=== PATIENT | female | born 1935 | race Caucasian/White ===

== ENCOUNTER 2016-07-04 13:32 | Outpatient (CLI) | payer MEDICARE | END 2016-07-04 13:33 | disposition home or self-care (01) | DX: D50.9 Iron deficiency anemia, unspecified (principal) ==

== ENCOUNTER 2016-07-22 12:28 | Emergency (ER) | payer MEDICARE | END 2016-07-22 14:26 | disposition home or self-care (01) | DX: S63.92XA Sprain of unspecified part of left wrist and hand, initial encounter (principal); S60.222A Contusion of left hand, initial encounter; W18.2XXA Fall in (into) shower or empty bathtub, initial encounter; Y93.E1 Activity, personal bathing and showering; Y92.012 Bathroom of single-family (private) house as the place of occurrence of the external cause; J45.909 Unspecified asthma, uncomplicated; K21.9 Gastro-esophageal reflux disease without esophagitis; M19.90 Unspecified osteoarthritis, unspecified site ==

== ENCOUNTER 2017-01-16 10:40 | Outpatient (CLI) | payer MEDICARE ==
[2017-01-16 19:03] LABS: BASOPHILS # (AUTO) 0.1 10^3/uL (0.0-0.1); BASOPHILS % (AUTO) 0.8 %; EOSINOPHILS # (AUTO) 0.6 10^3/uL (0.0-0.7); EOSINOPHILS % (AUTO) 6.2 %; HCT - HEMATOCRIT 37.3 % (37.0-47.0); HGB - HEMOGLOBIN 12.5 g/dL (12.0-16.0); LYMPHOCYTES # (AUTO) 1.5 10^3/uL (1.5-3.5); LYMPHOCYTES % (AUTO) 15.4 %; MEAN CORPUSCULAR HGB CONC 33.4 g/dL (32.0-36.0); MEAN CORPUSCULAR VOLUME 92.8 fL (81.0-99.0); MONOCYTES # (AUTO) 0.9 10^3/uL (0.0-1.0); MONOCYTES % (AUTO) 9.3 %; NEUTROPHILS # (AUTO) 6.6 10^3/uL (1.5-6.6); NEUTROPHILS % (AUTO) 68.3 %; NUCLEATED RED BLOOD CELLS AUTO 0.1 /100WBC; RED BLOOD COUNT 4.02 10^6/uL (4.20-5.40); RED CELL DISTRIBUTION WIDTH 14.3 % (12.0-15.0); UNCORRECTED WHITE BLOOD COUNT 9.6 x10^3/uL; WHITE BLOOD COUNT 9.6 x10^3/uL (4.8-10.8)
[2017-01-16 19:32] LABS: ALBUMIN/GLOBULIN RATIO 1.2 (1.0-2.2); BILIRUBIN,TOTAL 0.5 mg/dL (0.2-1.0); CALCIUM 8.7 mg/dL (8.5-10.3); CREATININE 0.8 mg/dL (0.4-1.0); POTASSIUM 4.2 mmol/L (3.5-5.0); TOTAL PROTEIN 6.7 g/dL (6.7-8.2)
== END 2017-01-16 10:41 | disposition home or self-care (01) ==
LOC: LAB.N 10:40
PROVIDERS: ATTEND Internal Medicine
DX: M19.90 Unspecified osteoarthritis, unspecified site (principal); E03.9 Hypothyroidism, unspecified; J45.909 Unspecified asthma, uncomplicated
CPT/HCPCS: 36415; 80053; 84443; 85025

== ENCOUNTER 2017-07-20 10:56 | Outpatient (CLI) | payer MEDICARE ==
[2017-07-20 19:27] LABS: BILIRUBIN,URINE NEGATIVE (NEGATIVE); GLUCOSE, URINE (UA) NEGATIVE (NEGATIVE); KETONES,URINE (UA) NEGATIVE (NEGATIVE); LEUKOCYTE ESTERASE, URINE LARGE (NEGATIVE); NITRITE,URINE POSITIVE (NEGATIVE); OCCULT BLOOD,URINE LARGE (NEGATIVE); PROTEIN,URINE 100 mg/dL (NEGATIVE); UROBILINOGEN,URINE 0.2 (NORMAL) E.U./dL (NORMAL)
[2017-07-20 19:28] LABS: CLARITY,URINE CLOUDY (CLEAR)
[2017-07-20 19:39] LABS: WBC CLUMPS,URINE PRESENT
[2017-07-20 19:40] LABS: BACTERIA,URINE Moderate /HPF (None Seen); EPITHELIAL CELLS,UR FEW Transitional /HPF (<= Few); SQUAMOUS EPITHELIAL CELL,UR FEW Squamous (<= Few)
== END 2017-07-20 10:57 ==
LOC: LAB.R 10:56
PROVIDERS: ATTEND Internal Medicine
DX: R30.0 Dysuria (principal)
CPT/HCPCS: 81001; 81003; 87086

== ENCOUNTER 2017-08-10 08:00 | Outpatient (CLI) | payer MEDICARE ==
[2017-08-10 12:50] LABS: BASOPHILS % (AUTO) 0.5 %; EOSINOPHILS # (AUTO) 0.1 10^3/uL (0.0-0.7); HGB - HEMOGLOBIN 11.9 g/dL (12.0-16.0); LYMPHOCYTES % (AUTO) 10.9 %; MEAN CORPUSCULAR HEMOGLOBIN 30.5 pg (27.0-31.0); MEAN CORPUSCULAR HGB CONC 34.2 g/dL (32.0-36.0); MEAN CORPUSCULAR VOLUME 89.2 fL (81.0-99.0); MEAN PLATELET VOLUME 6.7 fL (7.9-10.8); MONOCYTES % (AUTO) 11.2 %; NEUTROPHILS # (AUTO) 6.7 10^3/uL (1.5-6.6); NEUTROPHILS % (AUTO) 76.4 %; PLT - PLATELET COUNT 367 10^3/uL (130-450); RED CELL DISTRIBUTION WIDTH 14.2 % (12.0-15.0); WHITE BLOOD COUNT 8.7 x10^3/uL (4.8-10.8)
== END 2017-08-10 08:01 | disposition home or self-care (01) ==
LOC: LAB.R 08:00
PROVIDERS: ATTEND Internal Medicine
DX: J45.909 Unspecified asthma, uncomplicated (principal)
CPT/HCPCS: 85025

== ENCOUNTER 2017-08-15 08:00 | Outpatient (CLI) | payer MEDICARE | END 2017-08-15 08:01 | disposition home or self-care (01) | LOC: LAB.N 08:00 | PROVIDERS: ATTEND Internal Medicine | DX: R30.0 Dysuria (principal) | CPT/HCPCS: 87077; 87086 ==

== ENCOUNTER 2017-12-13 15:25 | Outpatient (CLI) | payer MEDICARE | END 2017-12-13 15:26 | disposition home or self-care (01) | LOC: LAB.R 15:25 | PROVIDERS: ATTEND Physician Assistant Medical | DX: N30.00 Acute cystitis without hematuria (principal) | CPT/HCPCS: 87086; 87181 ==

== ENCOUNTER 2017-12-22 08:00 | Outpatient (CLI) | payer MEDICARE ==
[2017-12-22 12:15] LABS: ALBUMIN 3.7 g/dL (3.2-5.5); ALBUMIN/GLOBULIN RATIO 1.3 (1.0-2.2); BILIRUBIN,TOTAL 0.9 mg/dL (0.2-1.0); CREATININE 0.8 mg/dL (0.4-1.0); TOTAL PROTEIN 6.6 g/dL (6.7-8.2)
[2017-12-22 12:34] LABS: BASOPHILS % (AUTO) 0.5 %; EOSINOPHILS # (AUTO) 0.2 10^3/uL (0.0-0.7); EOSINOPHILS % (AUTO) 3.4 %; HGB - HEMOGLOBIN 12.5 g/dL (12.0-16.0); LYMPHOCYTES # (AUTO) 1.2 10^3/uL (1.5-3.5); LYMPHOCYTES % (AUTO) 16.4 %; MEAN CORPUSCULAR HEMOGLOBIN 30.6 pg (27.0-31.0); MEAN CORPUSCULAR HGB CONC 34.3 g/dL (32.0-36.0); MEAN CORPUSCULAR VOLUME 89.3 fL (81.0-99.0); MEAN PLATELET VOLUME 6.4 fL (7.9-10.8); MONOCYTES # (AUTO) 0.6 10^3/uL (0.0-1.0); MONOCYTES % (AUTO) 7.7 %; NEUTROPHILS # (AUTO) 5.3 10^3/uL (1.5-6.6); PLT - PLATELET COUNT 375 10^3/uL (130-450); RED BLOOD COUNT 4.08 10^6/uL (4.20-5.40); RED CELL DISTRIBUTION WIDTH 13.9 % (12.0-15.0); WHITE BLOOD COUNT 7.4 x10^3/uL (4.8-10.8)
== END 2017-12-22 08:01 | disposition home or self-care (01) ==
LOC: LAB.N 08:00
PROVIDERS: ATTEND Physician Assistant Medical
DX: E03.9 Hypothyroidism, unspecified (principal); R53.83 Other fatigue; Z79.899 Other long term (current) drug therapy
CPT/HCPCS: 36415; 80053; 84443; 85025

== ENCOUNTER 2017-12-27 10:45 | Outpatient (CLI) | payer MEDICARE ==
--- NOTE | 2017-12-27 13:32 | XRAY Report ---
Reason: HYPONATREMIA Procedure Date: 12/27/2017 Accession Number: [id number] / [id number] Procedure: XR - Chest 2 View X-Ray CPT Code: 08182 FULL RESULT: EXAM: CHEST RADIOGRAPHY EXAM DATE: 12/27/2017 11:10 AM. CLINICAL HISTORY: HYPONATREMIA. COMPARISON: 09/28/2015 TECHNIQUE: 2 views. FINDINGS: Lungs/Pleura: No focal opacities evident. No pleural effusion. No pneumothorax. Normal volumes. Mediastinum: Mild cardiomegaly, increased since 09/28/2015. Other: Lumbar levoscoliosis. Accentuated thoracic kyphosis. Small hiatal hernia. IMPRESSION: Mild cardiomegaly. Clear lungs. RADIA
== END 2017-12-27 10:46 | disposition home or self-care (01) ==
LOC: DI 10:45
PROVIDERS: ATTEND Physician Assistant Medical
DX: R05 Cough (principal); I51.7 Cardiomegaly; R35.0 Frequency of micturition
CPT/HCPCS: 71046; 81003

== ENCOUNTER 2017-12-27 12:10 | Outpatient (CLI) | payer MEDICARE ==
[2017-12-27 19:40] LABS: BILIRUBIN,URINE NEGATIVE (NEGATIVE); GLUCOSE, URINE (UA) NEGATIVE (NEGATIVE); KETONES,URINE (UA) NEGATIVE (NEGATIVE); LEUKOCYTE ESTERASE, URINE NEGATIVE (NEGATIVE); NITRITE,URINE NEGATIVE (NEGATIVE); OCCULT BLOOD,URINE NEGATIVE (NEGATIVE); PH,URINE 6.5 PH (5.0-7.5); PROTEIN,URINE NEGATIVE (NEGATIVE); UROBILINOGEN,URINE 0.2 (NORMAL) E.U./dL (NORMAL)
[2017-12-27 20:03] LABS: CLARITY,URINE CLEAR (CLEAR)
== END 2017-12-27 12:11 | disposition home or self-care (01) ==
LOC: LAB.N 12:10
PROVIDERS: ATTEND Physician Assistant Medical
DX: R35.0 Frequency of micturition (principal)
CPT/HCPCS: 81001; 81003; 87086

== ENCOUNTER 2017-12-29 10:22 | Outpatient (CLI) | payer MEDICARE ==
[2017-12-29 09:21] LABS: SODIUM TIMED,URINE 32 mmol/L; TOTAL VOLUME 24HRS,URINE 1725 mL
== END 2017-12-29 10:23 | disposition home or self-care (01) ==
LOC: LAB.R 10:22
PROVIDERS: ATTEND Physician Assistant Medical
DX: R35.0 Frequency of micturition (principal); E87.1 Hypo-osmolality and hyponatremia
CPT/HCPCS: 84300

== ENCOUNTER 2018-01-01 08:00 | Outpatient (CLI) | payer MEDICARE ==
[2018-01-01 13:27] LABS: CREATININE 0.8 mg/dL (0.4-1.0)
== END 2018-01-01 08:01 | disposition home or self-care (01) ==
LOC: LAB.N 08:00
PROVIDERS: ATTEND Physician Assistant Medical
DX: E87.1 Hypo-osmolality and hyponatremia (principal); Z79.899 Other long term (current) drug therapy
CPT/HCPCS: 36415; 80048

== ENCOUNTER 2018-01-10 11:25 | Outpatient (CLI) | payer MEDICARE ==
[2018-01-10 18:33] LABS: CALCIUM 9.1 mg/dL (8.5-10.3); CREATININE 0.7 mg/dL (0.4-1.0)
== END 2018-01-10 11:26 | disposition home or self-care (01) ==
LOC: LAB.R 11:25
PROVIDERS: ATTEND Physician Assistant Medical
DX: E87.1 Hypo-osmolality and hyponatremia (principal); Z79.899 Other long term (current) drug therapy; N30.00 Acute cystitis without hematuria
CPT/HCPCS: 80048; 87077; 87086; 87181

== ENCOUNTER 2018-02-15 08:29 | Outpatient (CLI) | payer MEDICARE ==
[2018-02-15 12:55] LABS: BILIRUBIN,URINE NEGATIVE (NEGATIVE); GLUCOSE, URINE (UA) NEGATIVE (NEGATIVE); KETONES,URINE (UA) NEGATIVE (NEGATIVE); LEUKOCYTE ESTERASE, URINE TRACE (NEGATIVE); NITRITE,URINE NEGATIVE (NEGATIVE); OCCULT BLOOD,URINE NEGATIVE (NEGATIVE); PH,URINE 5.5 PH (5.0-7.5); PROTEIN,URINE NEGATIVE (NEGATIVE); UROBILINOGEN,URINE 0.2 (NORMAL) E.U./dL (NORMAL)
[2018-02-15 13:06] LABS: ALBUMIN 3.7 g/dL (3.2-5.5); ALBUMIN/GLOBULIN RATIO 1.2 (1.0-2.2); BILIRUBIN,TOTAL 0.8 mg/dL (0.2-1.0); CALCIUM 8.9 mg/dL (8.5-10.3); CLARITY,URINE CLEAR (CLEAR); CREATININE 0.8 mg/dL (0.4-1.0); TOTAL PROTEIN 6.7 g/dL (6.7-8.2)
[2018-02-15 13:07] LABS: BACTERIA,URINE Rare /HPF (None Seen); RBC,URINE 0-5 /HPF (0-5); SQUAMOUS EPITHELIAL CELL,UR MOD Squamous (<= Few)
== END 2018-02-15 08:30 ==
LOC: LAB.N 08:29
PROVIDERS: ATTEND Internal Medicine
DX: E87.1 Hypo-osmolality and hyponatremia (principal); R35.0 Frequency of micturition
CPT/HCPCS: 36415; 80053; 81001; 81003; 87086

== ENCOUNTER 2018-03-12 08:00 | Outpatient (CLI) | payer MEDICARE | END 2018-03-12 08:01 | disposition home or self-care (01) | LOC: LAB.R 08:00 | PROVIDERS: ATTEND Internal Medicine | DX: R35.0 Frequency of micturition (principal) | CPT/HCPCS: 87086; 87181 ==

== ENCOUNTER 2018-03-21 08:00 | Outpatient (CLI) | payer MEDICARE ==
[2018-03-21 12:38] LABS: BILIRUBIN,URINE NEGATIVE (NEGATIVE); GLUCOSE, URINE (UA) NEGATIVE (NEGATIVE); KETONES,URINE (UA) NEGATIVE (NEGATIVE); LEUKOCYTE ESTERASE, URINE TRACE (NEGATIVE); NITRITE,URINE NEGATIVE (NEGATIVE); OCCULT BLOOD,URINE NEGATIVE (NEGATIVE); PROTEIN,URINE NEGATIVE (NEGATIVE); UROBILINOGEN,URINE 0.2 (NORMAL) E.U./dL (NORMAL)
[2018-03-21 12:40] LABS: CLARITY,URINE CLEAR (CLEAR)
[2018-03-21 12:52] LABS: BACTERIA,URINE Rare /HPF (None Seen); RBC,URINE 0-5 /HPF (0-5); SQUAMOUS EPITHELIAL CELL,UR RARE Squamous (<= Few)
== END 2018-03-21 08:01 | disposition home or self-care (01) ==
LOC: LAB.N 08:00
PROVIDERS: ATTEND Internal Medicine
DX: R35.0 Frequency of micturition (principal)
CPT/HCPCS: 81001; 81003; 87086

== ENCOUNTER 2018-04-19 08:04 | Outpatient (CLI) | payer MEDICARE ==
[2018-04-23 13:31] LABS: CALCIUM 9.3 mg/dL (8.5-10.3); CREATININE 0.7 mg/dL (0.4-1.0)
== END 2018-04-19 23:59 | disposition home or self-care (01) ==
LOC: LAB.N 08:04
PROVIDERS: ATTEND Internal Medicine
DX: E87.1 Hypo-osmolality and hyponatremia (principal); Z79.899 Other long term (current) drug therapy
CPT/HCPCS: 36415; 80048

== ENCOUNTER 2018-08-14 08:00 | Outpatient (CLI) | payer MEDICARE | END 2018-08-14 08:01 | disposition home or self-care (01) | LOC: LAB.R 08:00 | PROVIDERS: ATTEND Internal Medicine | DX: N30.00 Acute cystitis without hematuria (principal) | CPT/HCPCS: 87086 ==

== ENCOUNTER 2018-08-28 07:39 | Outpatient (CLI) | payer MEDICARE ==
[2018-08-28 12:34] LABS: BASOPHILS # (AUTO) 0.1 10^3/uL (0.0-0.1); BASOPHILS % (AUTO) 0.9 %; EOSINOPHILS # (AUTO) 0.3 10^3/uL (0.0-0.7); EOSINOPHILS % (AUTO) 4.5 %; HGB - HEMOGLOBIN 11.8 g/dL (12.0-16.0); LYMPHOCYTES % (AUTO) 14.1 %; MEAN CORPUSCULAR HEMOGLOBIN 29.8 pg (27.0-31.0); MEAN CORPUSCULAR HGB CONC 33.2 g/dL (32.0-36.0); MEAN PLATELET VOLUME 6.9 fL (7.9-10.8); MONOCYTES # (AUTO) 0.7 10^3/uL (0.0-1.0); MONOCYTES % (AUTO) 10.1 %; NEUTROPHILS % (AUTO) 70.4 %; PLT - PLATELET COUNT 367 10^3/uL (130-450); RED BLOOD COUNT 3.97 10^6/uL (4.20-5.40); RED CELL DISTRIBUTION WIDTH 14.4 % (12.0-15.0); WHITE BLOOD COUNT 7.1 x10^3/uL (4.8-10.8)
[2018-08-28 13:17] LABS: THYROID STIMULATING HORMONE 4.12 uIU/mL (0.34-5.60)
[2018-08-28 13:20] LABS: ALBUMIN 3.4 g/dL (3.2-5.5); ALBUMIN/GLOBULIN RATIO 1.1 (1.0-2.2); BILIRUBIN,TOTAL 0.8 mg/dL (0.2-1.0); CALCIUM 8.8 mg/dL (8.5-10.3); CREATININE 0.8 mg/dL (0.4-1.0); FREE T4 (FREE THYROXINE) 0.8 ng/dL (0.58-1.64); TOTAL PROTEIN 6.4 g/dL (6.7-8.2)
== END 2018-08-28 23:59 | disposition home or self-care (01) ==
LOC: LAB.N 07:39
PROVIDERS: ATTEND Family Medicine
DX: E03.9 Hypothyroidism, unspecified (principal); I10 Essential (primary) hypertension; E87.1 Hypo-osmolality and hyponatremia; M15.9 Polyosteoarthritis, unspecified
CPT/HCPCS: 36415; 80053; 84439; 84443; 84481; 85025

== ENCOUNTER 2018-11-22 11:42 | Outpatient (CLI) | payer MEDICARE ==
[2018-11-22 12:57] LABS: THYROID STIMULATING HORMONE 11.83 uIU/mL (0.34-5.60)
[2018-11-22 12:59] LABS: FREE T4 (FREE THYROXINE) 0.39 ng/dL (0.58-1.64)
== END 2018-11-22 11:43 | disposition home or self-care (01) ==
LOC: LAB 11:42
PROVIDERS: ATTEND Family Medicine
DX: E03.9 Hypothyroidism, unspecified (principal)
CPT/HCPCS: 36415; 84439; 84443; 84481

== ENCOUNTER 2019-01-03 12:01 | Outpatient (CLI) | payer MEDICARE ==
[2019-01-03 18:38] LABS: CREATININE 0.8 mg/dL (0.4-1.0)
== END 2019-01-03 23:59 | disposition home or self-care (01) ==
LOC: LAB.N 12:01
PROVIDERS: ATTEND Urology
DX: R39.9 Unspecified symptoms and signs involving the genitourinary system (principal); N81.9 Female genital prolapse, unspecified
CPT/HCPCS: 36415; 80048

== ENCOUNTER 2019-01-24 09:51 | Outpatient (CLI) | payer MEDICARE ==
[2019-01-24 10:15] LABS: CALCIUM 9.1 mg/dL (8.5-10.3); CREATININE 0.8 mg/dL (0.4-1.0)
== END 2019-01-24 09:52 | disposition home or self-care (01) ==
LOC: LAB 09:51
PROVIDERS: ATTEND Urology
DX: Z01.818 Encounter for other preprocedural examination (principal); I10 Essential (primary) hypertension; R39.9 Unspecified symptoms and signs involving the genitourinary system; N81.9 Female genital prolapse, unspecified
CPT/HCPCS: 36415; 80048; 93005

== ENCOUNTER 2019-01-28 08:25 | Day surgery (SDC) | payer MEDICARE ==
[2019-01-28] MEDS ORDERED: LACTATED RINGERS 1,000 ML IV ONE (08:38)
--- NOTE | 2019-01-28 09:21 | ANESTHESIA ---
Pre-Anesthesia VS, & Labs - Diagnosis female genital prolapse, lower urinary tract symptoms - Procedure culpocleisis Vital Signs: Temp Pulse Resp BP Pulse Ox 36.8 C 76 20 191/68 H 98 01/28/19 08:40 01/28/19 08:40 01/28/19 08:40 01/28/19 08:40 01/28/19 08:40 Height 5 ft 2 in Weight (kg) 58.97 kg Body Mass Index 25.6 - NPO Last Fluid Intake: 0630 4oz cranberry juice - Is Patient ?: Not Applicable Home Medications and Allergies Home Medications: Ambulatory Orders Calcium Carbonate [Tums (Calcium Carbonate 500mg)] 1 tab PO DAILY 01/24/19 Fluticasone/Salmeterol [Advair 100-50 Diskus] 1 each IH BID 01/24/19 Liothyronine Sodium 5 mcg PO QDAC 01/24/19 Celecoxib 100 mg PO DAILY 09/28/15 Levothyroxine [Synthroid] 25 mcg PO DAILY 09/28/15 Ascorbic Acid [Vitamin C] 1,000 mg PO DAILY 07/22/16 Cholecalciferol (Vitamin D3) [Vitamin D3] 2,000 units PO DAILY 07/22/16 Ipratropium [place] 2 spray AYESHA BID 07/22/16 Losartan [Cozaar] 50 mg PO DAILY 07/22/16 Olopatadine HCl [Pataday] 1 drops EACHEYE BID 07/22/16 Omeprazole 20 mg PO DAILY 07/22/16 Calcium Carbonate [Tums (Calcium Carbonate 500mg)] 1 tab PO DAILY 01/24/19 Fluticasone/Salmeterol [Advair 100-50 Diskus] 1 each IH BID 01/24/19 Liothyronine Sodium 5 mcg PO QDAC 01/24/19 Allergies/Adverse Reactions: Allergies Allergy/AdvReac Type Severity Reaction Status Date / Time No Known Drug Allergies Allergy Verified 01/28/19 08:42 Anes History & Medical History - Anesthetic History Anesthesia Complications: reports: No previous complications - Medical History Cardiovascular: reports: Hypertension Pulmonary: reports: Asthma Gastrointestinal: reports: GERD (controlled with medication) Urinary: reports: Incontinence, Nocturia Neuro: reports: None Musculoskeletal: reports: Osteoarthritis Endocrine/Autoimmune: reports: HyPOthyroidism Blood Disorders: reports: None Skin: reports: None Smoking Status: Never smoker Psychosocial: reports: No issues indicated - Surgical History General: Colonoscopy Eyes Ears Nose Throat (EENT): Cataracts, Tonsil/Adenoidectomy Orthopedic: Hip replacement Exam General: Alert, Oriented x3, Cooperative, No acute distress Dental: WNL Mouth Openin Fingerbreadth Neck Mobility: Normal Mallampati classification: II Thyromental Distance: 4-6 cm Respiratory: Lungs clear, Normal breath sounds, No respiratory distress, No accessory muscle use Cardiovascular: Regular rate, Normal S1, Normal S2, No murmurs Mental/Cognitive Status: Alert/Oriented X3, Normal for patient Plan Anesthesia Type: General Consent for Procedure(s) Verified and Reviewed: Yes Code Status: Attempt Resuscitation ASA classification: 2-Mild systemic disease Is this case an emergency?: No
[2019-01-28] MEDS ORDERED: ONDANSETRON 4 MG/2 ML VIAL IVP ONE (09:55)
[2019-01-28] MEDS ORDERED: DEXAMETHASONE 4 MG/ML VIAL IVP ONE (09:55)
[2019-01-28] MEDS ORDERED: fentaNYL 100 MCG/2 ML VIAL IVP ONE (09:55)
[2019-01-28] MEDS ORDERED: PROPOFOL 200 MG/20 ML VIAL IVP ONE (09:55)
[2019-01-28] MEDS ORDERED: LIDOCAINE-MPF 2% 5 ML VIAL IM ONE (09:55)
[2019-01-28] MEDS ORDERED: ACETAMINOPHEN 1,000 MG/100 ML 100 ML IV ONE (09:55)
[2019-01-28] MEDS ORDERED: ePHEDrine 50 MG/ML VIAL IVP ONE (09:55)
[2019-01-28] MEDS ORDERED: CLINDAMYCIN 600 MG/50 ML 50 ML IV ONE (10:11)
[2019-01-28] MEDS: BUPIVACAINE 0.5%-EPI 1:200000 PF 30 ML VIAL ONE ×2 (10:24→11:51)
[2019-01-28] MEDS ORDERED: ESTROGENS, CONJUGATED CREAM 30 GM TUBE ONE (10:54)
[2019-01-28] MEDS ORDERED: HYDROcod/ACETAM 5/325 MG TABLET PO PRN (12:42)
[2019-01-28] MEDS ORDERED: HYDROmorphone 0.5 MG/0.5 ML SYRINGE IVP PRN (12:42)
[2019-01-28] MEDS ORDERED: ONDANSETRON 4 MG/2 ML VIAL IVP PRN (12:42)
--- NOTE | 2019-01-28 12:42 | IMMEDIATE POSTOPERATIVE NOTE ---
Immediate Postoperative Note - Procedure Note Pre-Op Diagnosis: pelvic prolapse Procedure: colpocleisis, cystoscopy Post-Op Diagnosis: same Primary Surgeon: nabeel Paper Cone Machine Operator: none Anesthesia Type: General LMA Findings: as expected Complications: No complications Estimated Blood Loss (in cc): 75 Plan of Care: home
[2019-01-28 13:46] VITALS: BP 180/80
--- NOTE | 2019-01-29 14:36 | OPERATIVE REPORT ---
Physician: Nafisa Marrero MD DATE OF PROCEDURE: 01/28/2019 PROCEDURE PERFORMED: [place] colpocleisis with cystoscopy and bilateral ureteral catheterization. SURGEON: Nafisa Marrero MD ANESTHESIA: General with LMA. 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 INDICATIONS: Patient is an 83-year-old woman with a longstanding history of severe pelvic prolapse, very bothered, not sexually active for some decades, electing obliterative procedure. She had a previous pelvic ultrasound showing normal endometrial thickness. No concerns with regards to her uterus. She elected a colpocleisis. DESCRIPTION OF PROCEDURE: After appropriate informed consent was obtained, patient was brought to the operating room. She received IV antibiotics prior to the procedure. SCDs were placed. Adequate general anesthesia was induced. She was carefully placed in the dorsal lithotomy position. All pressure points were carefully padded, cleaned, prepped and draped in the usual sterile fashion. A Rausch catheter was inserted, 400 mL of clear urine were drained. This was then clamped and tucked out of the field and left in her bladder. We used a Hollis retractor, identified the cervix, and marked out a rectangular area of mucosa some centimeters caudad to the cervix, both the posterior and the anterior. We did the posterior side first. This was a shorter distance. We marked out a small rectangle, used sterile injectable saline for hydrodissection, elevated a thin layer of vaginal mucosa off the rectal side of the posterior side, and handed this off. Used electrocautery for hemostasis. We then turned our attention to the anterior side, where the same procedure was done. This was a little bit wider and a little bit longer, given the stretch and the length of her anterior wall prolapse. This was done again sharply bluntly and with some electrocautery for hemostasis, and we stayed clear of the bladder neck. Once we had done this, we began to close, starting at the cephalad end of our rectangles. We used interrupted 2-0 Vicryl sutures to approximate the anterior and the posterior denuded areas of vaginal mucosa, leaving channels on the side and an open area immediately caudad to the cervix itself. As we brought this together, it came together nicely. There was good hemostasis. We did take a small inverted triangle out of the inferior rectal wall and brought this together as a very small posterior repair for the remaining area of the vaginal vault to give it a little bit better suspension. This was also done with 2-0 Vicryl sutures. At the termination of the procedure, hemostasis was excellent. We irrigated out prior to closure, and after closure, there were 2 narrowed channels right and left. Patient was well suspended, excellent hemostasis. I then removed her Rausch catheter, inserted the cystoscope, and observed this with both 30 and 70- degree lens. There were no injuries noted. Bilateral ureteral orifices were diminutive in size, a little bit difficult to see with the 30-degree lens. She had only a modest amount of fluid throughout the case. We saw a little bit of possible efflux on the left but not on the right. We ultimately chose to cannulate both ureteral orifices to ensure patency. We did first the left side with a wire, and a 5-German open-ended catheter slid up very nicely and after this, the ureter itself peristalsed and effluxed clear urine. On the right side, we were able to get a wire up, and then an open-ended catheter was slid up with zero resistance. We were able to then identify the ureteral orifice and see some efflux. The bladder itself was completely clear. There was no hematuria. It was drained. We replaced the 16-German Rausch catheter, which left to gravity drainage. We used Marcaine with epinephrine for local anesthesia at the termination of the case. Patient tolerated the procedure very well, was awakened and taken in stable condition to the postanesthesia care unit prior to discharge to home. TD: 01/29/2019 14:05 RENATA
== END 2019-01-28 08:26 | disposition home or self-care (01) ==
LOC: SDS 08:25
PROVIDERS: ATTEND Urology
PROC: 0ULG7ZZ Occlusion of Vagina, Via Natural or Artificial Opening (ICD-10-PCS; principal; 2019-01-28 09:30)
DX: N81.4 Uterovaginal prolapse, unspecified (principal); R39.15 Urgency of urination; R35.1 Nocturia; N39.43 Post-void dribbling; I10 Essential (primary) hypertension; J45.909 Unspecified asthma, uncomplicated; K21.9 Gastro-esophageal reflux disease without esophagitis
CPT/HCPCS: 57120; A9270; C1758; J0131; J7120

== ENCOUNTER 2019-05-13 09:08 | Outpatient (CLI) | payer MEDICARE ==
[2019-05-13 12:21] LABS: THYROID STIMULATING HORMONE 2.02 uIU/mL (0.34-5.60)
[2019-05-13 12:24] LABS: FREE T4 (FREE THYROXINE) 0.6 ng/dL (0.58-1.64)
== END 2019-05-13 23:59 | disposition home or self-care (01) ==
LOC: LAB.N 09:08
PROVIDERS: ATTEND Family Medicine
DX: E03.9 Hypothyroidism, unspecified (principal)
CPT/HCPCS: 36415; 84439; 84443; 84481

== ENCOUNTER 2019-05-28 10:20 | Outpatient (CLI) | payer MEDICARE ==
[2019-05-28 12:19] LABS: BASOPHILS # (AUTO) 0.1 10^3/uL (0.0-0.1); BASOPHILS % (AUTO) 0.6 %; EOSINOPHILS # (AUTO) 0.5 10^3/uL (0.0-0.7); EOSINOPHILS % (AUTO) 5.2 %; HGB - HEMOGLOBIN 11.1 g/dL (12.0-16.0); LYMPHOCYTES # (AUTO) 1.7 10^3/uL (1.5-3.5); LYMPHOCYTES % (AUTO) 19.2 %; MEAN CORPUSCULAR HGB CONC 31.3 g/dL (32.0-36.0); MEAN CORPUSCULAR VOLUME 89.4 fL (81.0-99.0); MEAN PLATELET VOLUME 8.9 fL (7.9-10.8); MONOCYTES # (AUTO) 0.9 10^3/uL (0.0-1.0); MONOCYTES % (AUTO) 10.7 %; NEUTROPHILS # (AUTO) 5.6 10^3/uL (1.5-6.6); NEUTROPHILS % (AUTO) 63.8 %; PLT - PLATELET COUNT 371 10^3/uL (130-450); RED BLOOD COUNT 3.97 10^6/uL (4.20-5.40); RED CELL DISTRIBUTION WIDTH 14.6 % (12.0-15.0); WHITE BLOOD COUNT 8.7 x10^3/uL (4.8-10.8)
[2019-05-28 12:59] LABS: ALBUMIN 3.6 g/dL (3.2-5.5); ALBUMIN/GLOBULIN RATIO 1.2 (1.0-2.2); BILIRUBIN,TOTAL 0.5 mg/dL (0.2-1.0); CALCIUM 8.7 mg/dL (8.5-10.3); CREATININE 0.7 mg/dL (0.4-1.0); TOTAL PROTEIN 6.5 g/dL (6.7-8.2)
== END 2019-05-28 23:59 | disposition home or self-care (01) ==
LOC: LAB.N 10:20
PROVIDERS: ATTEND Family Medicine
DX: J32.9 Chronic sinusitis, unspecified (principal); N39.0 Urinary tract infection, site not specified; I10 Essential (primary) hypertension; E03.9 Hypothyroidism, unspecified; D50.9 Iron deficiency anemia, unspecified
CPT/HCPCS: 36415; 80053; 81003; 85025; 87086

== ENCOUNTER 2020-03-06 07:36 | Outpatient (CLI) | payer MEDICARE ==
--- NOTE | 2020-03-06 08:56 | XRAY Report ---
PROCEDURE: Shoulder 3 View LT INDICATIONS: SHOULDER PAIN TECHNIQUE: 3 views of the shoulder were acquired. COMPARISON: None. FINDINGS: Bones: Moderate to severe osteoarthritic change of the left glenohumeral joint, characterized by join t space narrowing with marginal osteophytosis. There are also large subchondral cysts and diffuse sub chondral sclerosis of both the humeral head and the glenoid. Moderate osteophytic change of the left acromioclavicular joint with joint space narrowing, capsular hypertrophy, and marginal osteophytosis. Soft tissues: No suspicious soft tissue calcifications. IMPRESSION: Moderate to severe left glenohumeral osteoarthritis. Moderate left acromioclavicular osteoarthritis. Reviewed by: Son Parisi MD on 03/06/2020 8:55 AM PST Approved by: Son Parisi MD on 03/06/2020 8:55 AM PST Station ID: [id number]
== END 2020-03-06 07:37 | disposition home or self-care (01) ==
LOC: DI 07:36
PROVIDERS: ATTEND Internal Medicine
DX: M19.012 Primary osteoarthritis, left shoulder (principal)

== ENCOUNTER 2021-10-11 15:51 | Outpatient (CLI) | payer MEDICARE ==
[2021-10-11 16:04] LABS: BILIRUBIN,URINE NEGATIVE (NEGATIVE); GLUCOSE, URINE (UA) NEGATIVE (NEGATIVE); KETONES,URINE (UA) NEGATIVE (NEGATIVE); LEUKOCYTE ESTERASE, URINE SMALL (NEGATIVE); NITRITE,URINE NEGATIVE (NEGATIVE); OCCULT BLOOD,URINE TRACE-INTA (NEGATIVE); PROTEIN,URINE NEGATIVE (NEGATIVE); UROBILINOGEN,URINE 0.2 (NORMAL) E.U./dL (NORMAL)
[2021-10-11 16:05] LABS: CLARITY,URINE CLEAR (CLEAR)
[2021-10-11 16:14] LABS: RBC,URINE 0-5 /HPF (0-5); SQUAMOUS EPITHELIAL CELL,UR RARE Squamous (<= Few)
[2021-10-11 16:15] LABS: BACTERIA,URINE Rare /HPF (None Seen)
[2021-10-11 21:46] LABS: ESTIMATED AVERAGE GLUCOSE 120 mg/dL (70-100); HEMOGLOBIN A1c% 5.8 % (4.27-6.07)
== END 2021-10-11 15:52 | disposition home or self-care (01) ==
LOC: LAB.R 15:51
PROVIDERS: ATTEND Internal Medicine
DX: D64.9 Anemia, unspecified (principal); K22.10 Ulcer of esophagus without bleeding; R53.83 Other fatigue; H91.90 Unspecified hearing loss, unspecified ear; I10 Essential (primary) hypertension; E03.9 Hypothyroidism, unspecified; M19.90 Unspecified osteoarthritis, unspecified site; R09.82 Postnasal drip; J30.2 Other seasonal allergic rhinitis; R73.9 Hyperglycemia, unspecified
CPT/HCPCS: 81001; 81003; 82306; 82607; 83036; 87086

== ENCOUNTER 2021-10-26 12:37 | Outpatient (CLI) | payer MEDICARE ==
--- NOTE | 2021-10-27 08:28 | Mammography Report ---
BILATERAL DIGITAL SCREENING MAMMOGRAM: 10/26/2021 CLINICAL: Family history of breast cancer. Routine screening. Comparison is made to exams dated: 05/17/2010 mammogram and 09/22/2006 mammogram - [facility]. There are scattered fibroglandular elements in both breasts. No significant masses, calcifications, or other findings are seen in either breast. There has been no significant interval change. IMPRESSION: NEGATIVE There is no mammographic evidence of malignancy. A 1 year screening mammogram is recommended. Based on the Tyrer Cuzick model (a risk assessment model) the patients lifetime risk is % and her 10 year risk is %. According to the ACR, ACS, and NCCN guidelines, an annual breast MRI exam along with mammogram is recommended if the patients lifetime risk is 20% or greater. This exam was interpreted at Station ID: [id number]. NOTE: For mammograms, a report in lay terms will be sent to the patient. Approximately 15% of breast malignancies will not be visualized mammographically. In the management of a palpable breast mass, a negative mammogram must not discourage biopsy of a clinically suspicious lesion. Electronically Signed By: Sandra pierre/reena:10/26/2021 16:40:26 ACR BI-RADS Category 1: Negative 3341F PARENCHYMAL PATTERN: (A) - The breast(s) demonstrate(s) scattered fibroglandular densities. BI-RADS CATEGORY: (1) - 1 RECOMMENDATION: (ANNUAL) - Recommend routine annual screening mammography. [id number] 1 year screening LATERALITY: (B)
== END 2021-10-26 12:38 | disposition home or self-care (01) ==
LOC: DI.N 12:37
PROVIDERS: ATTEND Internal Medicine
DX: Z12.31 Encounter for screening mammogram for malignant neoplasm of breast (principal); Z80.3 Family history of malignant neoplasm of breast

== ENCOUNTER 2022-10-29 10:09 | Outpatient (CLI) | payer MEDICARE ==
--- NOTE | 2022-10-29 20:14 | XRAY Report ---
PROCEDURE: Hips 2V BILAT INDICATIONS: RIGHT HIP PAIN TECHNIQUE: AP view of the pelvis and lateral views of the right and left hip COMPARISON: None. FINDINGS: Bones: No fractures or dislocations. No suspicious bony lesions. Status post total left hip repla cement. Leftward curvature of the lumbar spine. Soft tissues: No suspicious soft tissue calcifications or masses. IMPRESSION: No acute abnormality of the pelvis or hips. Reviewed by: All Hansen on 10/29/2022 7:13 PM CUBA Approved by: All Hansen on 10/29/2022 7:13 PM CUBA Station ID: [id number]
== END 2022-10-29 10:10 | disposition home or self-care (01) ==
LOC: DI 10:09
PROVIDERS: ATTEND Family Medicine
DX: M25.551 Pain in right hip (principal); Z96.641 Presence of right artificial hip joint

== ENCOUNTER 2022-11-07 12:07 | Outpatient (CLI) | payer MEDICARE ==
--- NOTE | 2022-11-07 14:50 | XRAY Report ---
PROCEDURE: Knee 3 View RT INDICATIONS: KNEE PAIN TECHNIQUE: 3 views of the right knee(s) were acquired. COMPARISON: None. FINDINGS: Bones: No fractures or dislocations. No suspicious bony lesions. Tricompartmental joint space bhupendra rowing with associated osteophytosis. Soft tissues: Small knee joint effusion. No suspicious soft tissue calcifications or masses. IMPRESSION: Small knee joint effusion, without displaced fracture. Mild to moderate tricompartmental osteoarthritis. Kellgren-Tien scale of osteoarthritis: 2 Reviewed by: Floyd Jenkins on 11/07/2022 2:48 PM PDT Approved by: Floyd Jenkins on 11/07/2022 2:48 PM PDT Station ID: [id number]
--- NOTE | 2022-11-07 17:11 | Ultrasound Report ---
PROCEDURE: Duplex Ext Veins Right INDICATIONS: HIP PX,KNEE PX TECHNIQUE: Real-time imaging, as well as color and pulse Doppler interrogation, were performed of the lower extr emity deep veins from the inguinal ligament to the popliteal fossa. COMPARISON: None. FINDINGS: The deep veins are normally compressible, and free of intraluminal thrombus. Color and pu lse Doppler demonstrate normal phasic intraluminal flow. There is normal augmentation response to di stal compression maneuver. IMPRESSION: No evidence of DVT in visualized right lower extremity veins. 2 x 1.4 x 1.1 cm Maza's c yst is noted in right posterior fossa. Reviewed by: Arian Valdes MD on 11/07/2022 5:10 PM PDT Approved by: Arian Valdes MD on 11/07/2022 5:10 PM PDT Station ID: [id number]
== END 2022-11-07 12:08 | disposition home or self-care (01) ==
LOC: DI 12:07
PROVIDERS: ATTEND Internal Medicine
DX: M25.461 Effusion, right knee (principal); M17.11 Unilateral primary osteoarthritis, right knee; M71.21 Synovial cyst of popliteal space [Baker], right knee

== ENCOUNTER 2023-02-14 10:52 | Outpatient (CLI) | payer MEDICARE ==
[2023-02-14 11:17] LABS: BASOPHILS # (AUTO) 0.1 10^3/uL (0.0-0.1); BASOPHILS % (AUTO) 0.6 %; EOSINOPHILS # (AUTO) 0.4 10^3/uL (0.0-0.7); EOSINOPHILS % (AUTO) 3.8 %; HCT - HEMATOCRIT 39.3 % (37.0-47.0); HGB - HEMOGLOBIN 12.4 g/dL (12.0-16.0); LYMPHOCYTES % (AUTO) 17.7 %; MEAN CORPUSCULAR HEMOGLOBIN 30.8 pg (27.0-31.0); MEAN CORPUSCULAR HGB CONC 31.6 g/dL (32.0-36.0); MEAN CORPUSCULAR VOLUME 97.5 fL (81.0-99.0); MEAN PLATELET VOLUME 8.1 fL (7.9-10.8); MONOCYTES % (AUTO) 8.9 %; NEUTROPHILS # (AUTO) 7.8 10^3/uL (1.5-6.6); NEUTROPHILS % (AUTO) 68.6 %; PLT - PLATELET COUNT 463 10^3/uL (130-450); RED BLOOD COUNT 4.03 10^6/uL (4.20-5.40); WHITE BLOOD COUNT 11.4 x10^3/uL (4.8-10.8)
[2023-02-14 11:26] LABS: ALBUMIN 4.4 g/dL (3.2-5.5)
[2023-02-14 11:30] LABS: ALBUMIN/GLOBULIN RATIO 1.1 (1.0-2.2); BILIRUBIN,TOTAL 0.3 mg/dL (0.2-1.0); CALCIUM 10.1 mg/dL (8.5-10.3); CREATININE 0.6 mg/dL (0.6-1.3); POTASSIUM 4.8 mmol/L (3.5-4.5); TOTAL PROTEIN 8.4 g/dL (6.4-8.9)
[2023-02-14 11:35] LABS: THYROID STIMULATING HORMONE 4.58 uIU/mL (0.34-5.60)
== END 2023-02-14 10:53 | disposition home or self-care (01) ==
LOC: LAB 10:52
PROVIDERS: ATTEND Internal Medicine
DX: R53.83 Other fatigue (principal); Z79.899 Other long term (current) drug therapy; R06.09 Other forms of dyspnea
CPT/HCPCS: 36415; 80053; 84443; 85025

== ENCOUNTER 2023-02-21 10:41 | Outpatient (CLI) | payer MEDICARE ==
--- NOTE | 2023-02-21 16:24 | XRAY Report ---
PROCEDURE: Chest 2 View X-Ray INDICATIONS: DYSPNEA ON EXERTION TECHNIQUE: 2 views of the chest were acquired. COMPARISON: 12/27/2017. FINDINGS: Surgical changes and devices: None. Lungs and pleura: No pleural effusions or pneumothorax. Lungs are clear. Emphysematous change. Mediastinum: Mediastinal contours appear normal. Mild cardiomegaly. Moderate hiatal hernia. Bones and chest wall: No suspicious bony lesions. Diffuse osteopenia with mild anterior wedging of m ultiple contiguous thoracic vertebral bodies results in increased thoracic kyphosis. Overlying soft tissues appear unremarkable. IMPRESSION: 1. COPD. 2. No acute pulmonary process. 3. Mild cardiomegaly. 4. Moderate hiatal hernia. Reviewed by: Hussein Rodriguez MD on 02/21/2023 4:22 PM PDT Approved by: Hussein Rodriguez MD on 02/21/2023 4:22 PM PDT Station ID: [id number]
== END 2023-02-21 10:42 | disposition home or self-care (01) ==
LOC: DI 10:41
PROVIDERS: ATTEND Internal Medicine
DX: J44.9 Chronic obstructive pulmonary disease, unspecified (principal); I51.7 Cardiomegaly; K44.9 Diaphragmatic hernia without obstruction or gangrene

== ENCOUNTER 2023-03-28 10:28 | Outpatient (CLI) | payer MEDICARE ==
--- NOTE | 2023-03-28 11:21 | XRAY Report ---
PROCEDURE: Hip w/Pelvis 2-3V LT INDICATIONS: HIP PAIN TECHNIQUE: AP pelvis with lateral view(s) of the left hip(s). COMPARISON: Left hip X-ray 10/29/2022 FINDINGS: Bones: No fractures or dislocations. Stable appearance of left hip arthroplasty. The hardware appear s intact without surrounding fracture or lucency. Mild degenerative changes of the right hip. Degener ative changes of the visualized lower lumbar spine and pubic symphysis. Levocurvature of the lumbar s pine. No suspicious bony lesions. Soft tissues: No suspicious soft tissue calcifications or masses. IMPRESSION: No acute bony abnormality. Stable appearance of left hip arthroplasty without evidence of interval co mplication. Reviewed by: Ze Mcdonald MD on 03/28/2023 11:20 AM PST Approved by: Ze Mcdonald MD on 03/28/2023 11:20 AM PST Station ID: [id number]
== END 2023-03-28 10:29 | disposition home or self-care (01) ==
LOC: DI 10:28
PROVIDERS: ATTEND Internal Medicine
DX: M25.552 Pain in left hip (principal); Z96.642 Presence of left artificial hip joint

== ENCOUNTER 2023-05-24 09:06 | Outpatient (CLI) | payer MEDICARE | END 2023-05-24 09:07 | disposition home or self-care (01) | LOC: RT 09:06 | PROVIDERS: ATTEND Internal Medicine | DX: R06.09 Other forms of dyspnea (principal) | CPT/HCPCS: 94010 ==

== ENCOUNTER 2023-08-16 09:04 | Outpatient (CLI) | payer MEDICARE | END 2023-08-16 09:05 | disposition home or self-care (01) | LOC: DI 09:04 | PROVIDERS: ATTEND Internal Medicine | DX: I07.1 Rheumatic tricuspid insufficiency (principal); R06.09 Other forms of dyspnea; R53.83 Other fatigue | CPT/HCPCS: 93307 ==

== ENCOUNTER 2023-09-06 08:00 | Outpatient (CLI) | payer MEDICARE ==
[2023-09-06 12:29] LABS: BASOPHILS # (AUTO) 0.1 10^3/uL (0.0-0.1); BASOPHILS % (AUTO) 0.5 %; EOSINOPHILS # (AUTO) 0.5 10^3/uL (0.0-0.7); EOSINOPHILS % (AUTO) 3.3 %; HCT - HEMATOCRIT 33.7 % (37.0-47.0); HGB - HEMOGLOBIN 10.7 g/dL (12.0-16.0); LYMPHOCYTES # (AUTO) 1.4 10^3/uL (1.5-3.5); LYMPHOCYTES % (AUTO) 10.1 %; MEAN CORPUSCULAR HEMOGLOBIN 30.2 pg (27.0-31.0); MEAN CORPUSCULAR HGB CONC 31.8 g/dL (32.0-36.0); MEAN CORPUSCULAR VOLUME 95.2 fL (81.0-99.0); MEAN PLATELET VOLUME 8.3 fL (7.9-10.8); MONOCYTES # (AUTO) 1.3 10^3/uL (0.0-1.0); MONOCYTES % (AUTO) 9.8 %; NEUTROPHILS # (AUTO) 10.4 10^3/uL (1.5-6.6); NEUTROPHILS % (AUTO) 75.7 %; PLT - PLATELET COUNT 553 10^3/uL (130-450); RED BLOOD COUNT 3.54 10^6/uL (4.20-5.40); RED CELL DISTRIBUTION WIDTH 14.1 % (12.0-15.0); WHITE BLOOD COUNT 13.7 x10^3/uL (4.8-10.8)
[2023-09-06 12:52] LABS: ALBUMIN 3.7 g/dL (3.2-5.5); ALBUMIN/GLOBULIN RATIO 1.1 (1.0-2.2); BILIRUBIN,TOTAL 0.3 mg/dL (0.2-1.0); CALCIUM 9.4 mg/dL (8.5-10.3); CREATININE 0.6 mg/dL (0.6-1.3); POTASSIUM 4.6 mmol/L (3.5-4.5)
[2023-09-06 12:54] LABS: THYROID STIMULATING HORMONE 3.94 uIU/mL (0.34-5.60)
== END 2023-09-06 23:59 | disposition home or self-care (01) ==
LOC: LAB.N 08:00
PROVIDERS: ATTEND Internal Medicine
DX: R53.83 Other fatigue (principal)
CPT/HCPCS: 36415; 80053; 82607; 84443; 85025

== ENCOUNTER 2023-11-09 08:21 | Outpatient (CLI) | payer MEDICARE ==
[2023-11-09] MEDS ORDERED: iohexoL-300 100 ML VIAL ONE (08:39)
[2023-11-09] MEDS ORDERED: DIATRIZOATE MEGLU/DIATRIZO SOD 30 ML BOTTLE PO ONE (08:39)
[2023-11-09 08:54] LABS: CREATININE 0.7 mg/dL (0.6-1.3)
[2023-11-09] MEDS: iohexoL-300 100 ML VIAL IVP ONE (11:43)
[2023-11-09] MEDS: DIATRIZOATE MEGLU/DIATRIZO SOD 30 ML BOTTLE PO ONE (11:44)
--- NOTE | 2023-11-09 14:59 | CT Report ---
PROCEDURE: Abdomen/Pelvis W INDICATIONS: ABN WEIGHT LOSS CONTRAST: Omni 300 100ml TECHNIQUE: After the administration of intravenous contrast, a CT scan of the abdomen and pelvis was performed. Images were recorded and evaluated at appropriate window settings. Reformats: coronal and sagittal. F or radiation dose reduction, the following was used: automated exposure control, adjustment of mA and /or kV according to patient size. COMPARISON: None. FINDINGS: Image quality: Diagnostic. Lower chest: Separately dictated. Liver: No solid mass. Gallbladder: No radiopaque stones or wall thickening. Biliary tree: No intrahepatic or extrahepatic dilation, accounting for age. Spleen: No splenomegaly. Pancreas: No pancreatic ductal dilation. Adrenals: No adrenal nodule. Coarse calcification within the adrenal glands, indicating prior hemorrh age or infection. Kidneys and ureters: No hydronephrosis. No renal cystic lesion which requires follow up. No solid mas s. Stomach, bowel and peritoneum: No gastric or small bowel dilation. No abnormal wall thickening. No pa thologic free fluid. Large colonic stool load. Lymph nodes: No central or retroperitoneal adenopathy. Vessels: No infrarenal aortic aneurysm. Patent portal vein. PELVIS Obscured by metallic artifact. No large mass. Bones: Left hip arthroplasty No aggressive osseous abnormality. Degenerative disc disease, predominan tly of the lumbar spine. Other: No significant ventral or inguinal hernia. IMPRESSION: No findings to explain the patient's abnormal weight loss. Large colonic stool load. Reviewed by: Floyd Jenkins MD on 11/09/2023 1:58 PM CUBA Approved by: Floyd Jenkins MD on 11/09/2023 1:58 PM AKDT Station ID: [id number]
--- NOTE | 2023-11-09 15:17 | CT Report ---
PROCEDURE: Chest W INDICATIONS: ABN WEIGHT LOSS CONTRAST: Omni 300 100ml TECHNIQUE: After the administration of intravenous contrast, a CT scan of the chest was performed. Images were recorded and evaluated at appropriate window settings. Reformats: axial MIP of the chest, coronal and sagittal. For radiation dose reduction, the following was used: automated exposure control, adjustme nt of mA and/or kV according to patient size. COMPARISON: X-ray 02/20/2023 FINDINGS: Image quality: Diagnostic. Chest wall and lower neck: Heterogeneous thyroid, likely underlying thyroiditis. No breast mass. Left axillary adenopathy. For example, the 1.2 cm short axis left level 1 node (series 2, image 38). Lungs and pleura: No consolidation. No pleural effusions. No pneumothorax. A few solid pulmonary nod ules. For example, the 3 mm solid nodule in the right lower lobe (series 4, image 70) and the 3 mm no dule in the right lower lobe (series 4, image 50). Peripheral reticulation without significant bronch iectasis, probably senescent fibrosis. Mediastinum: Heart size is normal. No pericardial effusion. No large vessel abnormality. No mediastin al adenopathy by size criteria. Large hiatal hernia. Bones: New destructive bony mass of the left humeral head, with associated soft tissue component steffany uring 5.2 x 2.6 cm (series 2, image 19) Upper Abdomen: Separately dictated. IMPRESSION: Destructive bony mass of the left humeral head, with associated soft tissue component measuring 5.2 x 2.6 cm. Consider tissue sampling. Left axillary adenopathy, likely adalberto disease. Suspected chronic thyroiditis. A few solid pulmonary nodules, indeterminate in this setting. Reviewed by: Floyd Jenkins MD on 11/09/2023 2:16 PM AKMENA Approved by: Floyd Jenkins MD on 11/09/2023 2:16 PM AKDT Station ID: [id number]
== END 2023-11-09 08:22 | disposition home or self-care (01) ==
LOC: DI 08:21
PROVIDERS: ATTEND Internal Medicine
DX: R91.8 Other nonspecific abnormal finding of lung field (principal); M89.9 Disorder of bone, unspecified; R22.32 Localized swelling, mass and lump, left upper limb; Z79.899 Other long term (current) drug therapy
CPT/HCPCS: 36415; 71260; 74177; 82565; Q9963; Q9967

== ENCOUNTER 2023-11-24 12:31 | Inpatient (IN) | payer MEDICARE ==
--- NOTE | 2023-11-24 13:18 | ED Physician Documentation ---
PD HPI MAJOR TRAUMA - Stated complaint Stated Complaint: GLF - Chief complaint Chief Complaint: Trauma Ch/Bk - History obtained from History obtained from: Patient - Additional information Additional information: She had recent abnormal imaging for weight loss a couple of weeks ago which demonstrated destructive bony lesion in the left humeral head and axillary adenopathy which likely represented malignancy. This morning at 6 AM a couple of hours after taking her regular Tylenol she had a ground-level fall in the kitchen. She was standing up to straighten out after getting something out of the refrigerator and fell backwards hitting her head and neck and back on the ground. She is basically complaining of upper and mid back pain as well as bilateral rib pain. PD PAST MEDICAL HISTORY - Past Medical History Past Medical History: Yes Cardiovascular: None Respiratory: Asthma Neuro: None Endocrine/Autoimmune: None GI: GERD : Incontinence, Nocturia HEENT: Chronic hearing loss Psych: None Musculoskeletal: Osteoarthritis Derm: None - Past Surgical History Past Surgical History: Yes Ortho: Hip replacement HEENT: Cataracts, Tonsil/Adenoidectomy - Present Medications Home Medications: Ambulatory Orders Medication Instructions Recorded Confirmed Celecoxib 100 mg PO DAILY 09/28/15 01/24/19 Levothyroxine [Synthroid] 25 mcg PO DAILY 09/28/15 01/24/19 Ascorbic Acid [Vitamin C] 1,000 mg PO DAILY 07/22/16 01/24/19 Cholecalciferol (Vitamin D3) 2,000 units PO DAILY 07/22/16 01/24/19 [Vitamin D3] Ipratropium Roslyn 2 spray AYESHA BID 07/22/16 01/24/19 Losartan [Cozaar] 50 mg PO DAILY 07/22/16 01/24/19 Olopatadine HCl [Pataday] 1 drops EACHEYE BID 07/22/16 01/28/19 Omeprazole 20 mg PO DAILY 07/22/16 01/24/19 Calcium Carbonate [Tums (Calcium 1 tab PO DAILY 01/24/19 01/24/19 Carbonate 500mg)] Fluticasone Propion/Salmeterol 1 each IH BID 01/24/19 01/24/19 [Advair 100-50 Diskus] Liothyronine Sodium 5 mcg PO QDAC 01/24/19 01/24/19 - Allergies Allergies/Adverse Reactions: Allergies Allergy/AdvReac Type Severity Reaction Status Date / Time No Known Drug Allergies Allergy Verified 11/24/23 14:49 - Social History Does the pt smoke?: No Smoking Status: Never smoker Does the pt drink ETOH?: No Does the pt have substance abuse?: No - Immunizations Immunizations are current?: Yes PD ED PE NORMAL - Vitals Vital signs reviewed: Yes - General General: Alert and oriented X 3, No acute distress - HEENT HEENT: PERRL, EOMI - Neck Neck: Other (Kyphotic and scoliotic spine) - Cardiac Cardiac: RRR, No murmur - Respiratory Respiratory: No respiratory distress, Clear bilaterally - Abdomen Abdomen: Non tender - Back Back: Other (She has tenderness of the upper lumbar and low thoracic spines with bilateral lower rib tenderness laterally.) - Derm Derm: Normal color, Warm and dry - Extremities Extremities: No deformity, No tenderness to palpate, Normal ROM s pain, No edema, No calf tenderness / cord - Neuro Neuro: Alert and oriented X 3, Normal speech Results - Vitals Vitals: Vital Signs - 24 hr 11/24/23 11/24/23 12:42 16:21 Temperature 37.0 C Heart Rate 96 84 Respiratory 18 14 Rate Blood Pressure 152/74 H 151/73 H O2 Saturation 100 100 Oxygen O2 Source Room air - Labs Labs: Laboratory Tests 11/24/23 11/24/23 11/24/23 13:33 13:33 13:33 WBC 11.4 H RBC 3.74 L Hgb 11.1 L Hct 33.8 L MCV 90.4 MCH 29.7 MCHC 32.8 RDW 13.0 Plt Count 499 H MPV 7.5 L Neut # (Auto) 9.0 H Lymph # (Auto) 1.2 L Clinch # (Auto) 1.0 Eos # (Auto) 0.1 Baso # (Auto) 0.0 Absolute Nucleated RBC 0.00 Nucleated RBC % 0.0 PT 12.6 INR 1.2 Sodium 123 L Potassium 4.3 Chloride 91 L Carbon Dioxide 22 Anion Gap 10.0 BUN 14 Creatinine 0.5 L Estimated GFR (MDRD) 116 Glucose 108 H Calcium 10.3 Total Bilirubin 0.5 AST 17 ALT 11 Alkaline Phosphatase 102 Total Protein 7.3 Albumin 4.1 Globulin 3.2 Albumin/Globulin Ratio 1.3 - Rads (name of study) CT head and cervical spine were negative other than age-related and degenerative disease. Relevant Findings:: Final report received, EMP independent interpretation of test T-spine CT showing mild endplate deformity of T12 without retropulsion. Relevant Findings:: Final report received, EMP independent interpretation of t est L spine CT- negative Relevant Findings:: Final report received, EMP independent interpretation of test CT of the chest: Left humeral destructive lesion with left axillary adenopathy, small pulmonary nodules and large hiatal hernia Relevant Findings:: Final report received, EMP independent interpretation of test PD Medical Decision Making - ED course ED course: 88-year-old woman suffered a fall with recent diagnosis of a left humeral mass that is likely malignant. Imaging demonstrates T12 minor compression fracture. Otherwise her lab work shows mild anemia, normal INR and her CMP is notable for hyponatremia worse than her prior. Her sodium probably is low enough to merit admission for slow correction. As such a call was placed to the hospitalist for same at 4:20 PM. She is not immediately available but tells me she will call back. I did send a protected email to our cancer navigator given the findings on her CT. Spoke with Dr. Tsang for admission at 4:40 PM. I did order slow normal saline. I do not think she needs hypertonic at this point. Departure - Departure Disposition: 66 [facility] DC/Xfer Clinical Impression: Cancer of left humerus, Rib pain, Hyponatremia T12 compression fracture Qualifiers: Encounter type: initial encounter Qualified Code(s): S22.080A - Wedge compress ion fracture of T11-T12 vertebra, initial encounter for closed fracture Fall Qualifiers: Encounter type: initial encounter Qualified Code(s): W19.XXXA - Unspecified fall, initial encounter Head injury Qualifiers: Encounter type: initial encounter Qualified Code(s): S09.90XA - Unspecified injury of head, initial encounter Condition: Stable Record reviewed to determine appropriate education?: Yes Instructions: ED Fx Comp Vertebral Comments: You have a mild compression fracture at T12, this is probably going to hurt for a while but is of probably not much medical significance. 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 Tylenol per package instructions for pain. Forms: PCP List
[2023-11-24 13:38] LABS: BASOPHILS % (AUTO) 0.4 %; EOSINOPHILS # (AUTO) 0.1 10^3/uL (0.0-0.7); EOSINOPHILS % (AUTO) 0.7 %; HCT - HEMATOCRIT 33.8 % (37.0-47.0); HGB - HEMOGLOBIN 11.1 g/dL (12.0-16.0); LYMPHOCYTES # (AUTO) 1.2 10^3/uL (1.5-3.5); LYMPHOCYTES % (AUTO) 10.7 %; MEAN CORPUSCULAR HEMOGLOBIN 29.7 pg (27.0-31.0); MEAN CORPUSCULAR HGB CONC 32.8 g/dL (32.0-36.0); MEAN CORPUSCULAR VOLUME 90.4 fL (81.0-99.0); MEAN PLATELET VOLUME 7.5 fL (7.9-10.8); MONOCYTES % (AUTO) 8.5 %; NEUTROPHILS % (AUTO) 79.3 %; PLT - PLATELET COUNT 499 10^3/uL (130-450); RED BLOOD COUNT 3.74 10^6/uL (4.20-5.40); WHITE BLOOD COUNT 11.4 x10^3/uL (4.8-10.8)
[2023-11-24 13:52] LABS: INR 1.2 (0.8-1.2); PT - PROTHROMBIN TIME 12.6 secs (9.9-12.6)
[2023-11-24 13:57] LABS: ALBUMIN 4.1 g/dL (3.2-5.5); ALBUMIN/GLOBULIN RATIO 1.3 (1.0-2.2); BILIRUBIN,TOTAL 0.5 mg/dL (0.2-1.0); CALCIUM 10.3 mg/dL (8.5-10.3); CREATININE 0.5 mg/dL (0.6-1.3); POTASSIUM 4.3 mmol/L (3.5-4.5); TOTAL PROTEIN 7.3 g/dL (6.4-8.9)
--- NOTE | 2023-11-24 14:50 | CT Report ---
PROCEDURE: Head WO INDICATIONS: Fall with head back and rib injuries TECHNIQUE: Noncontrast 4.5 mm thick angled axial sections acquired from the foramen magnum to the vertex. For r adiation dose reduction, the following was used: automated exposure control, adjustment of mA and/or kV according to patient size. COMPARISON: None. FINDINGS: Image quality: Excellent. CSF spaces: Basal cisterns are patent. No extra-axial fluid collections. Ventricles are normal in size and shape. Brain: No midline shift. No intracranial masses or hemorrhage. Age-related global volume loss and chronic microvascular ischemic changes. Intracranial atherosclerotic vascular calcifications. Groves-w john matter interface is normal. Skull and face: Calvarium and visualized facial bones are intact, without suspicious lesions. Bilate ral lens replacements. The orbits are otherwise normal in appearance. Sinuses: Visualized sinuses and mastoids are clear. IMPRESSION: No acute intracranial pathology. Reviewed by: Ze Mcdonald MD on 11/24/2023 2:49 PM PDT Approved by: Ze Mcdonald MD on 11/24/2023 2:49 PM PDT Station ID: [id number]
--- NOTE | 2023-11-24 14:51 | CT Report ---
PROCEDURE: Cervical Spine WO INDICATIONS: Fall with head back and rib injuries TECHNIQUE: Noncontrast 3 mm thick sections acquired from the skull base to the T4 level. Sagittal and coronal r eformats were then constructed. For radiation dose reduction, the following was used: automated exp osure control, adjustment of mA and/or kV according to patient size. COMPARISON: None. FINDINGS: Image quality: Excellent. Bones: No fractures or dislocations. Degenerative changes of the spine. Decreased osseous mineraliza tion. Visualized superior ribs are intact. Soft tissues: Prevertebral soft tissues are normal in thickness. No paravertebral hematomas. No ap ical pneumothoraces. IMPRESSION: No acute, displaced fracture or traumatic subluxation. Reviewed by: Ze Mcdonald MD on 11/24/2023 2:50 PM PDT Approved by: Ze Mcdonald MD on 11/24/2023 2:50 PM PDT Station ID: [id number]
--- NOTE | 2023-11-24 15:19 | CT Report ---
PROCEDURE: Thoracic Spine WO INDICATIONS: Fall with head back and rib injuries TECHNIQUE: Noncontrast 3 mm thick sections acquired through the region of interest in the thoracic spine. Sagit arabella and coronal reformats were then constructed. For radiation dose reduction, the following was used : automated exposure control, adjustment of mA and/or kV according to patient size. COMPARISON: 11/09/2023. FINDINGS: Image quality: Excellent. Bones: There is normal overall bony alignment. Mild compression deformity superior endplate of T12. No retropulsion. This is new compared to recent prior. Decreased osseous mineralization. No suspiciou s sclerotic or lytic bony lesions. Central spinal canal is of normal overall caliber. Soft tissues: No paravertebral masses or hematomas. Visualized posteromedial lungs appear clear. P lease refer to dedicated CT chest from same day. IMPRESSION: Mild acute compression deformity of the superior endplate of T12. No retropulsion. Reviewed by: Ze Mcdonald MD on 11/24/2023 3:18 PM PDT Approved by: Ze Mcdonald MD on 11/24/2023 3:18 PM PDT Station ID: [id number]
--- NOTE | 2023-11-24 15:23 | CT Report ---
PROCEDURE: Lumbar Spine WO INDICATIONS: Fall with head back and rib injuries TECHNIQUE: Noncontrast 3 mm thick sections acquired from the T12 level to the sacrum. Sagittal and coronal refo rmats were constructed. For radiation dose reduction, the following was used: automated exposure co ntrol, adjustment of mA and/or kV according to patient size. COMPARISON: 11/09/2023. FINDINGS: Image quality: Only L3 and below vertebral bodies removed.. Bones: Grade 1 anterolisthesis of L5 on S1. Levoscoliotic curvature. Multilevel degenerative change, most pronounced at L3-L4 and L5 as well as severe disc height loss, degenerative endplate changes and spurring. Facet arthropathy, most pronounced lumbar spine. No acute vertebral body compression fract ures. No suspicious lytic or blastic bony lesions. Central spinal caliber is of normal overall ida ivana. No pars defects. Partially visualized left hip arthroplasty Soft tissues: No retroperitoneal masses or hematomas. Visualized aorta is normal in caliber. Athero sclerotic vascular calcifications. IMPRESSION: No acute fractures. Multilevel degenerative changes of the lumbar spine. Reviewed by: Ze Mcdonald MD on 11/24/2023 3:21 PM PDT Approved by: Ze Mcdonald MD on 11/24/2023 3:21 PM PDT Station ID: [id number]
--- NOTE | 2023-11-24 15:29 | CT Report ---
PROCEDURE: Chest WO INDICATIONS: Fall with head back and rib injuries TECHNIQUE: A CT scan of the chest was performed. Intravenous contrast media was not administered. Images were re corded and evaluated at appropriate window settings. Reformats: axial MIP of the chest, coronal and s agittal. For radiation dose reduction, the following was used: automated exposure control, adjustment of mA and/or kV according to patient size. COMPARISON: 11/09/2023. FINDINGS: Image quality: Diagnostic. Chest wall and lower neck: No thyroid nodule which requires sonographic follow up. Multiple enlarged axillary lymph nodes. Lungs and pleura: No consolidation. No pleural effusions. No pneumothorax. Stable subtle 4 mm right lower lobe pulmonary nodule. The other right lower lobe pulmonary nodule is not definitely seen. A fe w additional pulmonary nodules measuring 3 mm is noted. Peripheral reticulations are again noted. Mediastinum: Heart size is normal. Moderate coronary considerations. No pericardial effusion. No larg e vessel abnormality. No mediastinal adenopathy by size criteria. Large hilar hernia. Bones: Re-demonstration of partially visualized destructive lesion within the left humeral head with soft tissue component. Mild acute compression of the superior endplate of T12. Upper Abdomen: Unremarkable. IMPRESSION: 1.Mild acute compression deformity of the superior endplate of T12. Otherwise, no acute traumatic inj ury within the chest. 2.Redemonstration of destructive lesion of the left humeral head concerning for malignancy. 3.Enlarged left axillary lymph nodes concerning for metastatic disease. 4.Pulmonary nodules measuring 4 mm or less are indeterminant, attention on follow-up. 5.Large hiatal hernia. Reviewed by: Ze Mcdonald MD on 11/24/2023 3:27 PM PDT Approved by: Ze Mcdonald MD on 11/24/2023 3:27 PM PDT Station ID: [id number]
[2023-11-24] MEDS ORDERED: ACETAMINOPHEN 500 MG TABLET PO PRN (16:16)
[2023-11-24] MEDS ORDERED: ONDANSETRON 4 MG/2 ML VIAL IVP PRN ×2 (16:16→16:37)
[2023-11-24] MEDS ORDERED: ONDANSETRON ODT 4 MG TABLET TL PRN (16:37)
[2023-11-24] MEDS: SODIUM CHLORIDE 0.9% 1,000 ML IV STA (16:53)
--- NOTE | 2023-11-24 17:25 | HISTORY & PHYSICAL EXAMINATION ---
Chief Complaint - Chief Complaint Chief Complaint: fall in kitchen History of Present Illness - Admitted From Admitted From:: home - History Obtained From Records Reviewed: [facility] History obtained from: Dr. Calderon Exam Limitations: none - History of Present Illness HPI Comment/Other: 88 yo with a PMH of anemia and was admitted for barrientos 09/2015 after a hemoglobin was found to 6.3 and she was transfused. She was seen by Surgery (Hai) and an EGD and colonoscopy was performed. 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 The lower had a tortuous bowel, internal hemorrhoids but no diverticulosis. She also has a history of chronic hyponatremia. 134, 133. In December 2017 this was addressed with a chest x-ray and a 24- hour urine sodium excretion test. Her total volume was 1725. Urine sodium time was 32 mmol/L. Urine sodium over 24 hours was 55. Considered normal. She treated herself with Gatorade and eating salted almonds. She dropped to 128 in September 06, 2023. She did start complaining of fatigue and left shoulder pain in May 2019. It improved with physical therapy. She use to be a patient of Dr. Samm Capuot. From there she moved on to Dr. Hugo. She has not been seen in the clinic in a while and went to Dr. Michelle Noriega on October 24 to establish herself. Her main problem was that of increasing difficulty walking. She was just very stiff in the morning. She was getting more tired. Losing weight. started to feel like she was having dyspnea on exertion. On her new patient exam, she was diagnosed as anemia of chronic disease, fatigue. Weight loss. Radiology was ordered to workup the weight loss and abdomen pelvis CT was done for weight loss November 08. Coarse calcification within the adrenal glands indicating prior hemorrhage or infection. A left hip arthroplasty in the pelvis but no large mass or disease. There is nothing to explain the patient's abnormal weight loss with the abd CT. However, the Chest CT had a heterogeneous thyroid with likely underlying thyroiditis. Left axillary adenopathy was present. The lungs were clear of pneumonia but she had solid pulmonary nodules that were about 3 mm in the right lower lobe, and no bronchiectasis. She had a new destructive bony mass of the left humeral head associated with left soft tissue component measuring 5.2 x 2.6 cm. It was felt that the axillary adenopathy was associated with this mass. Her blood pressure history was addressed. Medications were renewed and the patient was sent for routine annual labs. She was reseen November 09. Complaining of left shoulder pain and, on that exam, she was diagnosed as having a mass of the left shoulder joint. referral was made to orthopedics for biopsy of this lesion. Today she was bending over to get something out of the refrigerator. When she stood up she lost her balance fell backwards and hit the back of her head. No loss of consciousness. Since then the back of her head hurt. She was evaluated by the ER where her initial vital signs showed a temperature of 37. Heart rate 96. Blood pressure 154/74. Respirations 18. 100% on room air. Radiology studies included a cervical spine CT, thoracic spine CT, lumbar spine CT, and a chest CT. She has a T12 minor compression fracture. Her lab work shows mild anemia and normal INR. Her CMP was notable for a hyponatremia that is worse than her usual hyponatremia. She is now 123 and this merits admission for treatment. She does not have nausea, altered mental status, history of seizures. Discussed the case with the ER provider. I agree with his assessment. I do think she merits admission for hyponatremia. History - Past Medical History Cardiovascular: reports: Hypertension Respiratory: reports: Asthma ( Since childhood. On chronic laba and Lisa. FVC 2.05, FEV 1.7, ratio 83%) Neuro: reports: None Endocrine/Autoimmune: reports: HyPOthyroidism GI: reports: GERD (with esophagitis hx), Hemorrhoids, Other (iron deficiency anemia) WELLFIELD TECHNICIAN: reports: Other (pelvic floor prolapse, atrophic vaginitis) : reports: Incontinence, Chronic bladder infection ( With a pessary in place for years. Underwent [place] colpocleisis 2018.), Nocturia HEENT: reports: Chronic vision loss (legally blind), Chronic hearing loss Psych: reports: None Musculoskeletal: reports: Osteoarthritis, Osteopenia, Other (trochanteric bursisit R hip 10/29/23 w injection) Derm: reports: Psoriasis (scalp), Other (Moh's L forehead 06/2022) MRSA Hx?: No Other Past Medical History: Thrombocytosis and leukocytosis - Past Surgical History Ortho: reports: Hip replacement (L hip fx repair 2007) /WELLFIELD TECHNICIAN: reports: Other ([place] colpoclesis and cystoscopy w b/l uretral cath 01/2019) HEENT: reports: Cataracts, Tonsil/Adenoidectomy - Family & Social History Family History Comment/Other: Father at age 92 of old age. Mother age 37 and childbirth. 1 sister has had breast cancer but is still alive. No children Living arrangement: At home Living Situation: Alone Social History Notes: she never smoked. She quit drinking alcohol in 1989. She has no history of recreational substance abuse. - Substance History Use: Uses substance without health or social issues: NONE - POLST Patient has POLST: Yes POLST Status: DNR Meds/Allgy - Home Medications Home Medications: Ambulatory Orders Medication Instructions Recorded Confirmed Ascorbic Acid [Vitamin C] 1,000 mg PO DAILY 07/22/16 11/24/23 Cholecalciferol (Vitamin D3) 5,000 units PO DAILY 07/22/16 11/24/23 [Vitamin D3] Ipratropium [place] 2 spray AYESHA BID 07/22/16 11/24/23 Losartan [Cozaar] 100 mg PO DAILY 07/22/16 11/24/23 Olopatadine HCl [Pataday] 1 drops EACHEYE BID 07/22/16 11/24/23 Omeprazole 20 mg PO DAILY 07/22/16 11/24/23 Calcium Carbonate [Tums (Calcium 2 tab PO DAILY 01/24/19 11/24/23 Carbonate 500mg)] Acetaminophen [Tylenol] 2 tab PO QID 11/24/23 11/24/23 Choline Bitartrate [Choline Sr] 1 tab PO DAILY 11/24/23 11/24/23 Ciclesonide [Alvesco] 1 puffs INH BID 11/24/23 11/24/23 Ferrous Sulfate [Feosol] 1 tab PO DAILY 11/24/23 11/24/23 Levothyroxine [Synthroid] 0.5 - 1 tab PO DAILY 11/24/23 11/24/23 Loratadine [Claritin] 1 tab PO DAILY 11/24/23 11/24/23 Triamcinolone 0.5% Cream [Kenalog 1 applic TOP QID PRN 11/24/23 11/24/23 0.5% Cream] - Allergies Allergies/Adverse Reactions: Allergies Allergy/AdvReac Type Severity Reaction Status Date / Time No Known Drug Allergies Allergy Verified 11/24/23 14:49 Review of Systems - Constitutional Constitutional: reports: Fatigue, Weakness, Poor appetite, Weight loss. denies: Fever, Chills, Malaise - Eyes Eyes: reports: Vision loss. denies: Pain, Irritation, Amaurosis - Ears, Nose & Throat Ears, Nose & Throat: reports: Hearing loss, Hearing aids. denies: Vertigo, Postnasal drainage, Dentures, Sore throat - Cardiovascular Cariovascular: reports: Decr. exercise tolerance. denies: Irregular heart rate, Palpitations, Chest pain, Edema, Lightheadedness, Syncope, Exertional dyspnea, Orthopnea - Respiratory Respiratory: reports: Cough, SOB with exertion. denies: Sputum production, Wheezing, Snoring, SOB at rest - Gastrointestinal Gastrointestinal: denies: Abdominal pain, Abdominal distention, Constipation, Diarrhea, Bile emesis - Genitourinary Genitourinary: reports: Frequency, Urgency, Incontinence, Nocturia. denies: Dysuria - Musculoskeletal Musculoskeletal: reports: Back pain, Stiffness, Joint pain. denies: Muscle pain, Muscle weakness - Integumentary Integumentary: denies: Rash, Pruritis, Lesions, Dryness - Neurological Neurological: reports: General weakness. denies: Focal weakness, Headache, Dizziness, Memory problems, Pre-existing deficit - Psychiatric Psychiatric: denies: Depression, Anxiety, Suicidal - Endocrine Endocrine: denies: Polyuria, Polydypsia, Polyphagia - Hematologic/Lymphatic Hematologic/Lymphatic: reports: Anemia. denies: Bruising, Petechiae, Blood clots, Lymphadenopathy Prior Level of Functionality: Dependent with activities of daily living. She is slowing down and more fatigued. But she can dress herself and feed herself. Exam - Vital Signs Reviewed Vital Signs: Yes Vital Signs: Vital Signs x48h Temp Pulse Resp BP Pulse Ox 11/24/23 16:21 84 14 151/73 H 100 11/24/23 12:42 37.0 C 96 18 152/74 H 100 - Physical Exam General Appearance: positive: No acute distress, Alert ( wearing a stockinette on her head), Other (Thin, deaf elderly female sitting upright, comfortable but has a low slightly hoarse voice, with a constant need to clear her throat and a dry cough) Eyes Bilateral: positive: PERRL, EOMI Neck: positive: No JVD. negative: Stiff neck Respiratory: positive: No respiratory distress, Rales ( he fainted basis. They clear intermittently depending on her cough.), Other (cough is very weak. She is not bringing up anything). negative: Wheezes, Rhonchi Abdomen: positive: Non-tender, No organomegaly, Nml bowel sounds, No distention Skin: positive: Warm, Dry, Pallor Extremities: positive: No pedal edema, Joint swelling (left humeral head.) Neurologic/Psychiatric: positive: Oriented x3, CN's nml (2-12) (even with her deafness and lack of vision, wearing glasses), Motor nml (just weak) Conclusion/Plan - Problem List (1) Hyponatremia Conclusion/Plan: She has had chronic hyponatremia for years. But this is the lowest her sodium has been. In looking at the CT of the abdomen and pelvis from November 08, she does have adrenal glands that are appear to be atrophic or scarred. Possibility of adrenal insufficiency that is a longstanding duration is going through my mind. She does not have congestive heart failure, she does not have alcoholic liver disease, she does not drink water excessively. I could order a serum osmolality and urine osmolality but these are send out labs. I will get an answer for over a week. I will do a serum cortisol level. As treatment, she will be in inpatient status because I think it will take greater than 2 midnights to get her sodium to 133 134. By standards of care she is not allowed to have her sodium increase by more than 6 to 8 mEq in a 24-hour period treat will consist of normal saline. Salt tablet. (2) Cancer of left humerus Conclusion/Plan: She is scheduled for orthopedic evaluation in January. . Radiology is not present on the weekends. Today she is being mated on a Monday, and there will be no radiology Monday or Monday. If she is still here Monday I can get radiology to do the biopsy. But if she is not here Monday morning I may e ndocrine the biopsy myself. (3) T12 compression fracture Conclusion/Plan: Amazingly, she may be uncomfortable but she is not in terrible pain. At this time pain management will be Tylenol, very low-dose opioids as needed. Physical therapy is not present on the weekend so she may be discharged before she can be evaluated. I do not believe she needs a TLSO she is already on calcium and vitamin D in the outpatient setting. I will do 1 dose of Reclast Qualifiers: Encounter type: initial encounter Qualified Code(s): S22.080A - Wedge compression fracture of T11-T12 vertebra, initial encounter for closed fracture (4) Fall at home Conclusion/Plan: simple mechanical fall. No reports of syncope in her description. And trying to plan for the future, I sat down and had an advance care planning conversation with this yomaira woman. She has many things already organized. Please see advance care planning conversation under separate Dictation. Qualifiers: Encounter type: initial encounter Qualified Code(s): W19.XXXA - Unspecified fall, initial encounter; Y92.009 - Unspecified place in unspecified non- institutional (private) residence as the place of occurrence of the external cause - Lab Results Lab results reviewed: Yes Fish Bones: 11/25/23 04:26 11/25/23 04:26 - Diagnostic Imaging Results Diagnostic Imaging Results: positive: Final report reviewed - EKG Results EKG Interpreted Independently: No Core Measures - Anticipated LOS I expect patient to be DC'd or transferred within 96 hours.: Yes - DVT/VTE - Prophylaxis VTE/DVT Prophylaxis med ordered at admit?: Yes
[2023-11-24] MEDS: SODIUM CHLORIDE FLUSH 0.9% 10 ML SYRINGE IVP SCH (17:39)
[2023-11-24] MEDS: SODIUM CHLORIDE 0.9% 1,000 ML IV SCH (17:39)
--- NOTE | 2023-11-24 18:23 | PHARMACY PROGRESS NOTE ---
- Best Possible Medication History Admit Date and Time: 11/24/23 1639 Processed by: Pharmacy Medication History completed: Yes Secondary Source(s): Written medication list, Insurance records (Proxy provided complete and updated rx and otc med list) As the person ultimately responsible for medication therapy, providers are able to order a medication from an existing home medication list in [facility] via the "Reconcile Routine" prior to Confirmation of that medication by sales support advisor. Such practice is discouraged except when the physician, in their clinical judgment, deems that a medical need exists for a medication without regard to previous use.
--- NOTE | 2023-11-24 18:50 | ADVANCE CARE PLANNING NOTE ---
Advance Care Planning - Planning Encounter Date: 11/24/23 Time: 18:45 Purpose: establish code status Parties in Attendance: hospitalist and patient Decisional Capacity of the Patient: Alert, oriented, understands situation. She is deaf but hears me well as long as my voice is normal conversational tone - Diagnosis for Encounter (1) Cancer of left humerus Summary: she has been having left shoulder pain since 2019. But no severity to the pain requiring her to seek care. She was just seen by her primary care provider to reestablish care October 24. She was complaining of weight loss and anemia. CT of chest and CT of abdomen was done. The CT of chest revealed a left shoulder mass. She has not had a biopsy yet. - Encounter Subjective/Patient's Story: She was born and raised in [place]. [place] in a town called [place]. From there she is lived in [place]. When she and her the [facility] and moved to [place] and then from [place] moved to [facility]. They had no children. 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 Her sister lives in [place]. She has good friends that live nearby. She says that she had no problems living alone and really only lost her mobility on November 08. She walked in to get her CAT scan of the chest, abdomen and pelvis. And then she could not walk very well and had to be put in her car with a wheelchair. So she has not driven since November 08. 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 She has an interesting schedule. She goes to bed about 5 or 6 in the evening. She wakes up at midnight. Breakfast is about 3 in the morning. So right now she says she is not interested in dinner because this is her bedtime. She started using a cane in her house because of the lack of mobility. But she still considers herself independent. She is very well-organized and has a folder that she is brought with her. It has a DURABLE POWER OF PATIENT SERVICE REPRESENTATIVE unit and her sisters identified. And she has a POLST form where she is a DO NOT RESUSCITATE with focus on comfort measures. She is deaf but has hearing aids. She says that if you speak to loudly it distorted sound and she does not like it when people speak to her "like I am a person". She wears glasses. She says that she is not legally blind. She has urinary incontinence. Chronic osteoarthritic complaints. Pain is not severe enough for her to want to take an opioid yet. The T12 compression fracture. She acknowledges that it is quite uncomfortable but not agonizing. She has a constant cough lately. She has been fatigued enough that she gets short of breath starting a few weeks ago. She has decided to hire a lady down the road that lives 2 minutes away. That person will be her caregiver temporarily until November 28. She will then hire another caregiver until her long-term care insurance kicks in. The long-term care insurance pays up to $419 a day. Her plan is to go home. She has no desire to be in a halfway facility or an assisted living facility. She has no desire to be in [place] near her sister even with this news of cancer in her arm. Objective/Medical Story: 88 yo with a PMH of anemia and was admitted for brarientos 09/2015 after a hemoglobin was found to 6.3 and she was transfused. She was seen by Surgery (Hai) and an EGD and colonoscopy was performed. 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 The lower had a tortuous bowel, internal hemorrhoids but no diverticulosis. She also has a history of chronic hyponatremia. 134, 133. In December 2017 this was addressed with a chest x-ray and a 24- hour urine sodium excretion test. Her total volume was 1725. Urine sodium time was 32 mmol/L. Urine sodium over 24 hours was 55. Considered normal. She treated herself with Gatorade and eating salted almonds. She dropped to 128 in September 06, 2023. She did start complaining of fatigue and left shoulder pain in May 2019. It improved with physical therapy. She use to be a patient of Dr. aSmm Caputo. From there she moved on to Dr. Hugo. She has not been seen in the clinic in a while and went to Dr. Michelle Noriega on October 24 to establish herself. Her main problem was that of increasing difficulty walking. She was just very stiff in the morning. She was getting more tired. Losing weight. started to feel like she was having dyspnea on exertion. On her new patient exam, she was diagnosed as anemia of chronic disease, fatigue. Weight loss. Radiology was ordered to workup the weight loss and abdomen pelvis CT was done for weight loss November 08. Coarse calcification within the adrenal glands indicating prior hemorrhage or infection. A left hip arthroplasty in the pelvis but no large mass or disease. There is nothing to explain the patient's abnormal weight loss with the abd CT. However, the Chest CT had a heterogeneous thyroid with likely underlying thyroiditis. Left axillary adenopathy was present. The lungs were clear of pneumonia but she had solid pulmonary nodules that were about 3 mm in the right lower lobe, and no bronchiectasis. She had a new destructive bony mass of the left humeral head associated with left soft tissue component measuring 5.2 x 2.6 cm. It was felt that the axillary adenopathy was associated with this mass. Her blood pressure history was addressed. Medications were renewed and the patient was sent for routine annual labs. She was reseen November 09. Complaining of left shoulder pain and, on that exam, she was diagnosed as having a mass of the left shoulder joint. referral was made to orthopedics for biopsy of this lesion. Today she was bending over to get something out of the refrigerator. When she stood up she lost her balance fell backwards and hit the back of her head. No loss of consciousness. Since then the back of her head hurt. She was evaluated by the ER where her initial vital signs showed a temperature of 37. Heart rate 96. Blood pressure 154/74. Respirations 18. 100% on room air. Radiology studies included a cervical spine CT, thoracic spine CT, lumbar spine CT, and a chest CT. She has a T12 minor compression fracture. Her lab work shows mild anemia and normal INR. Her CMP was notable for a hyponatremia that is worse than her usual hyponatremia. She is now 123 and this merits admission for treatment. She does not have nausea, altered mental status, history of seizures. Discussed the case with the ER provider. I agree with his assessment. I do think she merits admission for hyponatremia. Goals of Care: She would like to remain in her home. She is made those arrangements possible. She is already brought the paperwork in for DO NOT RESUSCITATE and DURABLE POWER OF PATIENT SERVICE REPRESENTATIVE Plan: 1. These forms have been copied and I am having HAM scanned them and put them in the chart. 2. She does want workup for this cancer. So she is interested me arranging for a bone biopsy while she is here. And she would like to return to Dr. Westbrook's care. 3. She says that I do not necessarily need to speak to her DURABLE POWER OF ATT CATEEY, her sister. Her best friend is already called her sister and she does not need her sister to be hearing it from different people. Code Status: Do Not Attempt Resuscitation Time spent on advance care plannin minutes
[2023-11-24] MEDS: ACETAMINOPHEN 325 MG TABLET PO PRN (21:58)
[2023-11-25 05:09] LABS: BASOPHILS # (AUTO) 0.1 10^3/uL (0.0-0.1); BASOPHILS % (AUTO) 0.6 %; EOSINOPHILS # (AUTO) 0.2 10^3/uL (0.0-0.7); EOSINOPHILS % (AUTO) 2.5 %; HCT - HEMATOCRIT 30.1 % (37.0-47.0); HGB - HEMOGLOBIN 9.7 g/dL (12.0-16.0); LYMPHOCYTES # (AUTO) 0.9 10^3/uL (1.5-3.5); LYMPHOCYTES % (AUTO) 10.9 %; MEAN CORPUSCULAR HEMOGLOBIN 29.5 pg (27.0-31.0); MEAN CORPUSCULAR HGB CONC 32.2 g/dL (32.0-36.0); MEAN CORPUSCULAR VOLUME 91.5 fL (81.0-99.0); MEAN PLATELET VOLUME 7.8 fL (7.9-10.8); MONOCYTES # (AUTO) 0.8 10^3/uL (0.0-1.0); MONOCYTES % (AUTO) 9.8 %; NEUTROPHILS # (AUTO) 6.3 10^3/uL (1.5-6.6); NEUTROPHILS % (AUTO) 75.8 %; PLT - PLATELET COUNT 508 10^3/uL (130-450); RED BLOOD COUNT 3.29 10^6/uL (4.20-5.40); RED CELL DISTRIBUTION WIDTH 13.1 % (12.0-15.0); WHITE BLOOD COUNT 8.3 x10^3/uL (4.8-10.8)
[2023-11-25 05:36] LABS: CALCIUM 9.2 mg/dL (8.5-10.3); CREATININE 0.4 mg/dL (0.6-1.3); POTASSIUM 3.8 mmol/L (3.5-4.5)
[2023-11-25] MEDS: LEVOTHYROXINE 25 MCG TABLET PO SCH (06:10)
[2023-11-25] MEDS: PANTOPRAZOLE 40 MG TABLET PO SCH (06:10)
[2023-11-25] MEDS ORDERED: LEVOTHYROXINE 25 MCG TABLET PO SCH (07:00)
[2023-11-25] MEDS ORDERED: PANTOPRAZOLE 40 MG TABLET PO SCH (07:00)
[2023-11-25] MEDS: ENOXAPARIN 40 MG/0.4 ML SYRINGE SUBQ SCH (08:41)
[2023-11-25] MEDS: LOSARTAN 50 MG TABLET PO SCH (08:42)
[2023-11-25] MEDS ORDERED: LOSARTAN 50 MG TABLET PO SCH (09:00)
[2023-11-25] MEDS ORDERED: CELECOXIB 100 MG CAPSULE PO SCH (09:00)
[2023-11-25] MEDS: CALCIUM CARBONATE CHEW 500 MG TABLET PO PRN (10:43)
[2023-11-25] MEDS ORDERED: NON FORMULARY MED (Omeprazole [Omeprazole] 20 MG Capsule.Dr) PO SCH (12:00)
[2023-11-25] MEDS: FERROUS SULFATE 325 MG TABLET PO SCH (13:14)
[2023-11-25] MEDS: LORATADINE 10 MG TABLET PO SCH (13:14)
[2023-11-25] MEDS: LOSARTAN 50 MG TABLET PO ONE (13:14)
[2023-11-25] MEDS: ASCORBIC ACID 500 MG TABLET PO SCH (13:14)
[2023-11-25] MEDS: ACETAMINOPHEN 500 MG TABLET PO SCH (13:14)
[2023-11-25] MEDS: LEVOTHYROXINE 25 MCG TABLET PO ONE (13:19)
[2023-11-25] MEDS: CALCIUM CARBONATE CHEW 500 MG TABLET PO SCH (13:19)
--- NOTE | 2023-11-25 14:00 | PROVIDER PROGRESS NOTE ---
Subjective - Prog Note Date Prog Note Date: 11/25/23 Prog Note Time: 13:58 - Subjective Pt reports feeling: Improved Subjective: Very long conversation with her and her best friend who is visiting from [place]. The patient feels better. But she has not gotten out of bed yet and has not figured out if she is steady enough to go home or not. Which led to a long conversation about her safety at discharge. She is insistent that she is safe at home. That may be she will call a caregiver to come pick her up and take care of her starting tomorrow. But if she feels she is strong enough she does not want a caregiver right now. Her friend from [place] disagrees with her and tells her that she is weak, and needs a caregiver now. The patient's sister flies in from [place] November 26. And the sister is 88 years old. The patient feels like her 88-year-old sister will be able to take care of her 14/11 as well. she continues to have some type of throat fullness with a constant dry nonproductive cough. She has eaten most of her breakfast, and is also eaten about half of her lunch. Current Medications - Current Medications Current Medications: Active Medications Acetaminophen (Acetaminophen 325 Mg Tablet) 650 mg PO Q4HR PRN PRN Reason: Pain 1 to 4, or Fever Last Admin: 11/25/23 06:09 Dose: 650 mg Acetaminophen (Acetaminophen 500 Mg Tablet) 1,000 mg PO QID [facility] Last Admin: 11/25/23 13:14 Dose: 1,000 mg Ascorbic Acid (Ascorbic Acid 500 Mg Tablet) 1,000 mg PO DAILY [facility] Last Admin: 11/25/23 13:14 Dose: 1,000 mg Budesonide (Budesonide 0.5 Mg/2 Ml Neb) 0.5 mg INH RTBID [facility] Calcium Carbonate/Glycine (Calcium Carbonate Chew 500 Mg Tablet) 500 mg PO TID PRN PRN Reason: INDIGESTION Last Admin: 11/25/23 13:14 Dose: 500 mg Calcium Carbonate/Glycine (Calcium Carbonate Chew 500 Mg Tablet) 1,000 mg PO DAILY [facility] Last Admin: 11/25/23 13:19 Dose: 1,000 mg Cholecalciferol (Cholecalciferol 5,000 Unit Capsule) 5,000 unit PO SuMoWeFr@0900 [facility] Enoxaparin Sodium (Enoxaparin 40 Mg/0.4 Ml Syringe) 40 mg SUBQ DAILY [facility] Last Admin: 11/25/23 08:41 Dose: 40 mg Ferrous Sulfate (Ferrous Sulfate 325 Mg Tablet) 325 mg PO DAILY [facility] Last Admin: 11/25/23 13:14 Dose: 325 mg Sodium Chloride (Normal Saline 0.9%) 1,000 mls @ 100 mls/hr IV .Q10H [facility] Last Admin: 11/25/23 11:41 Dose: 100 mls/hr Levothyroxine Sodium (Levothyroxine 100 Mcg Tablet) 100 mcg PO MoTuWeThFr@0700 [facility] Levothyroxine Sodium (Levothyroxine 25 Mcg Tablet) 50 mcg PO Sa@0700 [facility] Loratadine (Loratadine 10 Mg Tablet) 10 mg PO DAILY [facility] Last Admin: 11/25/23 13:14 Dose: 10 mg Losartan Potassium (Losartan 50 Mg Tablet) 100 mg PO DAILY [facility] Ondansetron HCl (Ondansetron Odt 4 Mg Tablet) 4 mg TL Q6HR PRN PRN Reason: Nausea / Vomiting Ondansetron HCl (Ondansetron 4 Mg/2 Ml Vial) 4 mg IVP Q6HR PRN PRN Reason: Nausea / Vomiting Oxycodone HCl (Oxycodone 5 Mg Tablet) 5 mg PO Q4HR PRN PRN Reason: Pain 5 to 7 Pantoprazole Sodium (Pantoprazole 40 Mg Tablet) 40 mg PO QDAC [facility] Last Admin: 11/25/23 06:10 Dose: 40 mg Ipratropium [place] 2 each AYESHA BID [facility] Last Admin: 11/25/23 13:15 Dose: 2 each Olopatadine Hcl 1 each EACHEYE BID [facility] Last Admin: 11/25/23 13:16 Dose: 1 each Sodium Chloride (Sodium Chloride Flush 0.9% 10 Ml Syringe) 10 ml IVP PRN PRN PRN Reason: NEEDED PER PROVIDER ORDERS Sodium Chloride (Sodium Chloride Flush 0.9% 10 Ml Syringe) 10 ml IVP 0100,0900,1700 [facility] Last Admin: 11/25/23 08:44 Dose: 10 ml Ascorbic Acid [Vitamin C] 1,000 mg PO DAILY 07/22/16 Cholecalciferol (Vitamin D3) [Vitamin D3] 5,000 units PO DAILY 07/22/16 Ipratropium [place] 2 spray AYESHA BID 07/22/16 Losartan [Cozaar] 100 mg PO DAILY 07/22/16 Olopatadine HCl [Pataday] 1 drops EACHEYE BID 07/22/16 Omeprazole 20 mg PO DAILY 07/22/16 Calcium Carbonate [Tums (Calcium Carbonate 500mg)] 2 tab PO DAILY 01/24/19 Acetaminophen [Tylenol] 2 tab PO QID 11/24/23 Choline Bitartrate [Choline Sr] 1 tab PO DAILY 11/24/23 Ciclesonide [Alvesco] 1 puffs INH BID 11/24/23 Ferrous Sulfate [Feosol] 1 tab PO DAILY 11/24/23 Levothyroxine [Synthroid] 0.5 - 1 tab PO DAILY 11/24/23 Loratadine [Claritin] 1 tab PO DAILY 11/24/23 Triamcinolone 0.5% Cream [Kenalog 0.5% Cream] 1 applic TOP QID PRN 11/24/23 Objective - Vital Signs/Intake & Output Reviewed Vital Signs: Yes Vital Signs: Vital Signs x48h Temp Pulse Resp BP Pulse Ox 11/25/23 08:00 37.6 C 87 18 136/68 H 97 Intake & Output: Intake & Output 11/22/23 11/23/23 11/24/23 11/25/23 23:59 23:59 23:59 23:59 Intake Total 200 2163.334 Output Total 600 700 Balance -400 1463.334 - Objective General Appearance: positive: No acute distress, Alert, Other ( Elderly female who looks stated age, comfortable sitting up in bed. No respiratory distress and just with a chronic intermittent dry cough) Eyes Bilateral: positive: PERRL, EOMI ENT: positive: Pharynx nml Neck: positive: No JVD. negative: Stiff neck Respiratory: positive: No respiratory distress. negative: Wheezes, Rales, Rhonchi Cardiovascular: positive: Regular rate & rhythm Abdomen: positive: Non-tender, No organomegaly, Nml bowel sounds, No distention Skin: positive: Warm, Dry Extremities: positive: Full ROM ( for the left shoulder that hurts to Abduct. The tumor mass is still evident), Pedal edema (. Trace edema around her ankles and comparison to yesterday) Neurologic/Psychiatric: positive: Oriented x3, CN's nml (2-12), Motor nml - Lab Results Fish Bones: 11/25/23 04:26 11/25/23 04:26 Other Labs: Lab Results x24hrs 11/25/23 11/25/23 11/25/23 Range/Units 08:57 04:26 04:26 WBC 8.3 (4.8-10.8) x10^3/uL RBC 3.29 L (4.20-5.40) 10^6/uL Hgb 9.7 L (12.0-16.0) g/dL Hct 30.1 L (37.0-47.0) % MCV 91.5 (81.0-99.0) fL MCH 29.5 (27.0-31.0) pg MCHC 32.2 (32.0-36.0) g/dL RDW 13.1 (12.0-15.0) % Plt Count 508 H (130-450) 10^3/uL MPV 7.8 L (7.9-10.8) fL Neut # (Auto) 6.3 (1.5-6.6) 10^3/uL Lymph # (Auto) 0.9 L (1.5-3.5) 10^3/uL [place] # (Auto) 0.8 (0.0-1.0) 10^3/uL Eos # (Auto) 0.2 (0.0-0.7) 10^3/uL Baso # (Auto) 0.1 (0.0-0.1) 10^3/uL Absolute Nucleated RBC 0.00 x10^3/uL Nucleated RBC % 0.0 /100WBC Sodium 130 L (135-145) mmol/L Potassium 3.8 (3.5-4.5) mmol/L Chloride 100 L (101-111) mmol/L Carbon Dioxide 22 (21-32) mmol/L Anion Gap 8.0 (6-13) BUN 9 (6-20) mg/dL Creatinine 0.4 L (0.6-1.3) mg/dL Estimated GFR (MDRD) 150 (>89) Glucose 88 (74-104) mg/dL Calcium 9.2 (8.5-10.3) mg/dL Cortisol AM Sample 10.2 ug/dL Assessment/Plan - Problem List (1) Hyponatremia Impression: She has had chronic hyponatremia for years. But this is the lowest her sodium has been. In looking at the CT of the abdomen and pelvis from November 08, she does have adrenal glands that are appear to be atrophic or scarred. Possibility of adrenal insufficiency that is a longstanding duration is going through my mind. She does not have congestive heart failure, she does not have alcoholic liver disease, she does not drink water excessively. send cortisol level is 10 this morning. Send no evidence of insufficiency of that level of cortisol. I have been giving her 0.9 normal saline. This morning her sodium is 130. Up from the 123. Plan: Continue normal saline until sodium above 130. I also will have nursing get her out of bed and walker to see how strong (or not) she is. I will then gently insist that she call Ada, the private duty caregiver, that she wanted to hire. However she was not planning on getting Ada to come to her house for a few more weeks. I explained that I think she needs Ada now. She is very annoyed. She says that she is a stubborn person. She does not like being told what to do. I explained that she is an adult and can decide what ever she wants, but I am suggesting options. Ultimately it will be her decision if she follows through with what is best for herself.... or not. (2) Cancer of left humerus Conclusion/Plan: She is scheduled for orthopedic evaluation in January. Radiology is not present on the weekends. Sodium improved to the point that I think it may be discharging her tomorrow. Did discuss possible bone biopsy with my orthopedic colleagues. However they feel that my approach would probably not be in the patient's interest. They worry about "seeding" the tumor if I do a biopsy with what I have here on hand. That would be a Jamshidi needle. As such I am going to try and call orthopedics on November 26. Most likely the patient will be out of the hospital by tomorrow. And I will be calling orthopedics after she is discharged. I have also told her that I would try and get a hold of Dr. Westbrook since Dr. Noriega is retiring. She would really like to see Dr. Westbrook again. (3) T12 compression fracture Conclusion/Plan: Amazingly, she may be uncomfortable but she is not in terrible pain. At this time pain management will be Tylenol, very low-dose opioids as needed. Physical therapy is not present on the weekend so she may be discharged before she can be evaluated. I do not believe she needs a TLSO she is already on calcium and vitamin D in the outpatient setting. I will do 1 dose of Reclast 5 mg IVP Qualifiers: Encounter type: initial encounter Qualified Code(s): S22.080A - Wedge compression fracture of T11-T12 vertebra, initial encounter for closed fracture (4) Fall at home Conclusion/Plan: simple mechanical fall. No reports of syncope in her description. And trying to plan for the future, I sat down and had an advance care planning conversation with this yomaira woman. She has many things already organized. Please see advance care planning conversation under separate Dictation. Qualifiers: Encounter type: initial encounter Qualified Code(s): W19.XXXA - Unspecified fall, initial encounter; Y92.009 - Unspecified place in unspecified non- institutional (private) residence as the place of occurrence of the external cause
[2023-11-25] MEDS: BUDESONIDE 0.5 MG/2 ML NEB INH SCH (14:23)
[2023-11-25] MEDS ORDERED: ZOLEDRONIC ACID 4 MG/5 ML VIAL IV ONE (15:00)
[2023-11-25] MEDS: ZOLEDRONIC ACID 5 MG/100 ML IV ONE (15:07)
[2023-11-26 06:05] LABS: BASOPHILS # (AUTO) 0.1 10^3/uL (0.0-0.1); BASOPHILS % (AUTO) 0.7 %; EOSINOPHILS # (AUTO) 0.2 10^3/uL (0.0-0.7); EOSINOPHILS % (AUTO) 2.5 %; HGB - HEMOGLOBIN 10.4 g/dL (12.0-16.0); LYMPHOCYTES # (AUTO) 0.9 10^3/uL (1.5-3.5); LYMPHOCYTES % (AUTO) 9.8 %; MEAN CORPUSCULAR HEMOGLOBIN 29.6 pg (27.0-31.0); MEAN CORPUSCULAR HGB CONC 31.5 g/dL (32.0-36.0); MEAN PLATELET VOLUME 7.8 fL (7.9-10.8); MONOCYTES # (AUTO) 0.7 10^3/uL (0.0-1.0); MONOCYTES % (AUTO) 7.7 %; NEUTROPHILS # (AUTO) 7.2 10^3/uL (1.5-6.6); NEUTROPHILS % (AUTO) 78.9 %; PLT - PLATELET COUNT 468 10^3/uL (130-450); RED BLOOD COUNT 3.51 10^6/uL (4.20-5.40); RED CELL DISTRIBUTION WIDTH 13.3 % (12.0-15.0); WHITE BLOOD COUNT 9.2 x10^3/uL (4.8-10.8)
[2023-11-26 06:13] LABS: CALCIUM 9.2 mg/dL (8.5-10.3); CREATININE 0.5 mg/dL (0.6-1.3); POTASSIUM 3.1 mmol/L (3.5-4.5)
[2023-11-26] MEDS: POTASSIUM CHLORIDE 20 MEQ TABLET PO ONE (08:47)
[2023-11-26] MEDS: LOSARTAN 50 MG TABLET PO SCH (08:48)
[2023-11-26] MEDS: SODIUM CHLORIDE 0.9% 1,000 ML IV SCH (08:48)
[2023-11-26] MEDS: CHOLECALCIFEROL 5,000 UNIT CAPSULE PO SCH (08:49)
[2023-11-26] MEDS: SODIUM CHLORIDE 1 GM TABLET PO SCH (08:49)
--- NOTE | 2023-11-26 09:12 | PROVIDER PROGRESS NOTE ---
Subjective - Prog Note Date Prog Note Date: 11/26/23 Prog Note Time: 09:08 - Subjective Pt reports feeling: Improved Subjective: Able to get up with a walker yesterday. Walk with standby assist. She feels as long as she has a caregiver during the day she will be fine. She will not need a caregiver at night. Denies any significant pain. The left arm where the tumor is does hurt and she has diminished range of motion in that left arm but not any pain anywhere else that bothers her. She has a normal aches and pains of being 88 years old she tells me. Appetite is okay. She denies chest pain, cough, congestion. The last 2 days she has had a constant low-grade cough with me. Clearing of the throat. I am not hearing it this morning. Current Medications - Current Medications Current Medications: Active Medications Acetaminophen (Acetaminophen 325 Mg Tablet) 650 mg PO Q4HR PRN PRN Reason: Pain 1 to 4, or Fever Last Admin: 11/25/23 06:09 Dose: 650 mg Acetaminophen (Acetaminophen 500 Mg Tablet) 1,[address] [facility] Last Admin: 11/26/23 08:48 Dose: 1,000 mg Ascorbic Acid (Ascorbic Acid 500 Mg Tablet) 1,[address] [facility] Last Admin: 11/26/23 08:48 Dose: 1,000 mg Budesonide (Budesonide 0.5 Mg/2 Ml Neb) 0.[address] [facility] Last Admin: 11/26/23 07:23 Dose: Not Given Calcium Carbonate/Glycine (Calcium Carbonate Chew 500 Mg Tablet) 500 mg PO TID PRN PRN Reason: INDIGESTION Last Admin: 11/25/23 13:14 Dose: 500 mg Calcium Carbonate/Glycine (Calcium Carbonate Chew 500 Mg Tablet) 1,[address] [facility] Last Admin: 11/26/23 08:48 Dose: 1,000 mg Cholecalciferol (Cholecalciferol 5,000 Unit Capsule) 5,000 unit PO SuMoWeFr@0900 [facility] Last Admin: 11/26/23 08:49 Dose: 5,000 unit Enoxaparin Sodium (Enoxaparin 40 Mg/0.4 Ml Syringe) [address] [facility] Last Admin: 11/26/23 08:49 Dose: 40 mg Ferrous Sulfate (Ferrous Sulfate 325 Mg Tablet) [address] [facility] Last Admin: 11/26/23 08:49 Dose: 325 mg Sodium Chloride (Normal Saline 0.9%) 1,000 mls @ 125 mls/hr IV .Q8H [facility] Last Admin: 11/26/23 08:48 Dose: 125 mls/hr Levothyroxine Sodium (Levothyroxine 100 Mcg Tablet) 100 mcg PO MoTuWeThFr@0700 [facility] Levothyroxine Sodium (Levothyroxine 25 Mcg Tablet) 50 mcg PO Sa@0700 [facility] Loratadine (Loratadine 10 Mg Tablet) [address] [facility] Last Admin: 11/26/23 08:49 Dose: 10 mg Losartan Potassium (Losartan 50 Mg Tablet) [address] [facility] Last Admin: 11/26/23 08:48 Dose: 100 mg Ondansetron HCl (Ondansetron Odt 4 Mg Tablet) 4 mg TL Q6HR PRN PRN Reason: Nausea / Vomiting Ondansetron HCl (Ondansetron 4 Mg/2 Ml Vial) 4 mg IVP Q6HR PRN PRN Reason: Nausea / Vomiting Oxycodone HCl (Oxycodone 5 Mg Tablet) 5 mg PO Q4HR PRN PRN Reason: Pain 5 to 7 Pantoprazole Sodium (Pantoprazole 40 Mg Tablet) [address] [facility] Last Admin: 11/26/23 06:18 Dose: 40 mg Ipratropium [place] [address] [facility] Last Admin: 11/26/23 08:55 Dose: 2 each Olopatadine Hcl [address] [facility] Last Admin: 11/26/23 08:54 Dose: 1 each Sodium Chloride (Sodium Chloride Flush 0.9% 10 Ml Syringe) 10 ml IVP PRN PRN PRN Reason: NEEDED PER PROVIDER ORDERS Sodium Chloride (Sodium Chloride Flush 0.9% 10 Ml Syringe) 10 ml IVP 0100,0900,1700 [facility] Last Admin: 11/26/23 08:49 Dose: 10 ml Sodium Chloride (Sodium Chloride 1 Gm Tablet) [address] [facility] Last Admin: 11/26/23 08:49 Dose: 1 gm Ascorbic Acid [Vitamin C] 1,000 mg PO DAILY 07/22/16 Cholecalciferol (Vitamin D3) [Vitamin D3] 5,000 units PO DAILY 07/22/16 Ipratropium [place] 2 spray AYESHA BID 07/22/16 Losartan [Cozaar] 100 mg PO DAILY 07/22/16 Olopatadine HCl [Pataday] 1 drops EACHEYE BID 07/22/16 Omeprazole 20 mg PO DAILY 07/22/16 Calcium Carbonate [Tums (Calcium Carbonate 500mg)] 2 tab PO DAILY 01/24/19 Acetaminophen [Tylenol] 2 tab PO QID 11/24/23 Choline Bitartrate [Choline Sr] 1 tab PO DAILY 11/24/23 Ciclesonide [Alvesco] 1 puffs INH BID 11/24/23 Ferrous Sulfate [Feosol] 1 tab PO DAILY 11/24/23 Levothyroxine [Synthroid] 0.5 - 1 tab PO DAILY 11/24/23 Loratadine [Claritin] 1 tab PO DAILY 11/24/23 Triamcinolone 0.5% Cream [Kenalog 0.5% Cream] 1 applic TOP QID PRN 11/24/23 Objective - Vital Signs/Intake & Output Reviewed Vital Signs: Yes Vital Signs: Vital Signs x48h Temp Pulse Resp BP Pulse Ox 11/26/23 08:00 37.3 C 90 18 167/82 H 97 Intake & Output: Intake & Output 11/23/23 11/24/23 11/25/23 11/26/23 23:59 23:59 23:59 23:59 Intake Total 208 3823.334 810 Output Total 600 1100 1600 Balance -392 9103.334 790 - Objective General Appearance: positive: No acute distress, Alert ( Wearing a guajardo needed Yesterday and today because she is always cold.), Other (Frail elderly lady who is oriented to person, place, time and situation.) Eyes Bilateral: positive: PERRL, EOMI ENT: positive: Pharynx nml, No signs of dehydration, Other ( Glasses.). negative: Pharyngeal erythema Neck: positive: No JVD. negative: Stiff neck Respiratory: positive: No respiratory distress, Other ( She has had a mild, intermittent cough for 2 days. Today I am not noticing it it during our exam.). negative: Wheezes, Rales, Rhonchi Cardiovascular: positive: Regular rate & rhythm, Systolic murmur Abdomen: positive: Non-tender, No organomegaly, Nml bowel sounds, No distention Skin: positive: Warm, Dry, Pallor Extremities: positive: Full ROM ( except for left arm shoulder), No pedal edema Neurologic/Psychiatric: positive: Oriented x3, CN's nml (2-12) (deaf w hearing aid and has glasses), Motor nml - Lab Results Fish Bones: 11/26/23 05:28 11/26/23 05:28 Other Labs: Lab Results x24hrs 11/26/23 11/26/23 11/26/23 Range/Units 05:28 05:28 04:32 WBC 9.2 (4.8-10.8) x10^3/uL RBC 3.51 L (4.20-5.40) 10^6/uL Hgb 10.4 L (12.0-16.0) g/dL Hct 33.0 L (37.0-47.0) % MCV 94.0 (81.0-99.0) fL MCH 29.6 (27.0-31.0) pg MCHC 31.5 L (32.0-36.0) g/dL RDW 13.3 (12.0-15.0) % Plt Count 468 H (130-450) 10^3/uL MPV 7.8 L (7.9-10.8) fL Neut # (Auto) 7.2 H (1.5-6.6) 10^3/uL Lymph # (Auto) 0.9 L (1.5-3.5) 10^3/uL [place] # (Auto) 0.7 (0.0-1.0) 10^3/uL Eos # (Auto) 0.2 (0.0-0.7) 10^3/uL Baso # (Auto) 0.1 (0.0-0.1) 10^3/uL Absolute Nucleated RBC 0.00 x10^3/uL Nucleated RBC % 0.0 /100WBC Sodium 126 L (135-145) mmol/L Potassium 3.1 L (3.5-4.5) mmol/L Chloride 97 L (101-111) mmol/L Carbon Dioxide 22 (21-32) mmol/L Anion Gap 7.0 (6-13) BUN 10 (6-20) mg/dL Creatinine 0.5 L (0.6-1.3) mg/dL Estimated GFR (MDRD) 116 (>89) Glucose 141 H (74-104) mg/dL POC Whole Bld Glucose 79 (70 - 100) mg/dL Calcium 9.2 (8.5-10.3) mg/dL Cortisol AM Sample ug/dL 11/25/23 Range/Units 08:57 WBC (4.8-10.8) x10^3/uL RBC (4.20-5.40) 10^6/uL Hgb (12.0-16.0) g/dL Hct (37.0-47.0) % MCV (81.0-99.0) fL MCH (27.0-31.0) pg MCHC (32.0-36.0) g/dL RDW (12.0-15.0) % Plt Count (130-450) 10^3/uL MPV (7.9-10.8) fL Neut # (Auto) (1.5-6.6) 10^3/uL Lymph # (Auto) (1.5-3.5) 10^3/uL [place] # (Auto) (0.0-1.0) 10^3/uL Eos # (Auto) (0.0-0.7) 10^3/uL Baso # (Auto) (0.0-0.1) 10^3/uL Absolute Nucleated RBC x10^3/uL Nucleated RBC % /100WBC Sodium (135-145) mmol/L Potassium (3.5-4.5) mmol/L Chloride (101-111) mmol/L Carbon Dioxide (21-32) mmol/L Anion Gap (6-13) BUN (6-20) mg/dL Creatinine (0.6-1.3) mg/dL Estimated GFR (MDRD) (>89) Glucose (74-104) mg/dL POC Whole Bld Glucose (70 - 100) mg/dL Calcium (8.5-10.3) mg/dL Cortisol AM Sample 10.2 ug/dL ABX Reporting Has patient been on IV antibiotics over the past 48 hours?: No Assessment/Plan - Problem List (1) Hyponatremia Impression: She has had chronic hyponatremia for years. But this is the lowest her sodium has been. In looking at the CT of the abdomen and pelvis from November 08, she does have adrenal glands that are appear to be atrophic or scarred. Possibility of adrenal insufficiency that is a longstanding duration is going through my mind. She does not have congestive heart failure, she does not have alcoholic liver disease, she does not drink water excessively. send cortisol level is 10 this morning. Send no evidence of insufficiency of that level of cortisol. I have been giving her 0.9 normal saline. 3 her sodium had gone from 1 23-130. So today I expected her to go up even further and discharge her today. However her sodium dropped to 126. I noticed that urine output was very poor since midnight last night. The patient says that she has been urinating nonstop. In less than 7 hours she is urinated close to 1200 cc. She is not on a diuretic. Cortisol level was also normal so I do not think this is adrenal insufficiency. She apologizes for yesterday. She says that she just does not like people telling her what to do and she does not feel like she was a "proper 7 lady" yesterday when she spoke to me. I reassured her that she is completely within the realm of what I see in patients. As we have to come to independent [facility] with a diagnosis or an unpleasant reality, we are slow to except it. And we have to slowly understand it before we do what is right For ourselves. I told her the re is no reason for her to apologize. Plan: I would hope to send her home today. But with her sodium dropping I would like to hold onto her to another day. I will be adding a salt tablet to her food today. Increasing her sodium from 100 cc an hour to 225 cc an hour. Recheck sodium in 8 hours. (2) Cancer of left humerus Conclusion/Plan: She is scheduled for orthopedic evaluation in January. Radiology is not present on the weekends. I Did discuss possible bone biopsy with my orthopedic colleagues yesterday. However they feel that my approach would probably not be in the patient's interest. They worry about "seeding" the tumor if I do a biops y with what I have here on hand. That would be a Jamshidi needle. As such I am going to try and call orthopedics oncology on November 26 at [facility]. I have also told her that I would try and get a hold of Dr. Westbrook since Dr. Noriega is retiring. She would really like to see Dr. Westbrook again. (3) T12 compression fracture Conclusion/Plan: Amazingly, she may be uncomfortable but she is not in terrible pain. At this time pain management will be Tylenol, very low-dose opioids as needed. Physical therapy is not present on the weekend so she may be discharged before she can be evaluated. I do not believe she needs a TLSO she is already on calcium and vitamin D in the outpatient setting. I ordered one dose of reclast 5 mg IVP on 11/25/23. Qualifiers: Encounter type: initial encounter Qualified Code(s): S22.080A - Wedge compression fracture of T11-T12 vertebra, initial encounter for closed fracture (4) Fall at home Conclusion/Plan: simple mechanical fall. No reports of syncope in her description. And trying to plan for the future, I sat down and had an advance care planning conversation with this yomaira woman. She has many things already organized. Please see advance care planning conversation under separate Dictation. Her best friend who lives in [place] was with her yesterday. We all discussed the fact that this lady is weak. Will need caregiving. She was not happy about 14/11 caregiving. She demonstrated that she still able to be independent somewhat. She got up with her walker and is only a standby assist. She does plan on hiring a caregiver for during the day but feels safe to stay at home at night. Qualifiers: Encounter type: initial encounter Qualified Code(s): W19.XXXA - Unspecified fall, initial encounter; Y92.009 - Unspecified place in unspecified non- institutional (private) residence as the place of occurrence of the external cause
[2023-11-26] MEDS: polyethylene glycoL 3350 17 GM PACKET PO SCH (14:40)
[2023-11-26] MEDS: SODIUM CHLORIDE FLUSH 0.9% 10 ML SYRINGE IVP PRN (20:43)
[2023-11-27 05:22] LABS: BASOPHILS # (AUTO) 0.1 10^3/uL (0.0-0.1); BASOPHILS % (AUTO) 0.5 %; EOSINOPHILS # (AUTO) 0.2 10^3/uL (0.0-0.7); HCT - HEMATOCRIT 30.4 % (37.0-47.0); LYMPHOCYTES # (AUTO) 0.8 10^3/uL (1.5-3.5); LYMPHOCYTES % (AUTO) 6.7 %; MEAN CORPUSCULAR HEMOGLOBIN 30.4 pg (27.0-31.0); MEAN CORPUSCULAR HGB CONC 32.9 g/dL (32.0-36.0); MEAN CORPUSCULAR VOLUME 92.4 fL (81.0-99.0); MEAN PLATELET VOLUME 7.5 fL (7.9-10.8); MONOCYTES # (AUTO) 1.1 10^3/uL (0.0-1.0); MONOCYTES % (AUTO) 8.6 %; NEUTROPHILS % (AUTO) 81.9 %; PLT - PLATELET COUNT 396 10^3/uL (130-450); RED BLOOD COUNT 3.29 10^6/uL (4.20-5.40); RED CELL DISTRIBUTION WIDTH 13.3 % (12.0-15.0); WHITE BLOOD COUNT 12.2 x10^3/uL (4.8-10.8)
[2023-11-27 06:02] LABS: CALCIUM 8.7 mg/dL (8.5-10.3); CREATININE 0.5 mg/dL (0.6-1.3); POTASSIUM 4.1 mmol/L (3.5-4.5)
[2023-11-27] MEDS: LEVOTHYROXINE 100 MCG TABLET PO SCH (06:53)
--- NOTE | 2023-11-27 07:36 | Discharge Plan ---
Discharge Plan Problem Reviewed?: Yes Disposition: Home Health Service Condition: Stable Prescriptions: Sodium Chloride [Salt Tab] 1 gm PO DAILY #30 tab Diet: Regular Activity Restrictions: Activity as Tolerated Shower Restrictions: No Driving Restrictions: Yes (no driving) Assistance Devices: Walker Instruction Topics: ED Fx Comp Vertebral Health Concerns: You were being evaluated by your primary care provider for weight loss and fatigue. Your first visit was October 24. A CAT scan was done of chest, abdomen. 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 You also have a long history of low salt levels in your blood but it has been stable for many years. Not severe. You presented to the emergency room with a fall. You had been in front of the refrigerator and was pulling something out when you stood up, lost balance, and fell back and hit your head. We found to have a very low sodium level. Normal is 135. For the last few years you have been living at approximately at 131- 134. Emergency room you were 123. We placed you in the hospital and started gently hydrating you with salt water and putting that directly into your veins through an IV. as part of treatment, we are not supposed to raise your sodium by more than 6 mmol or 8 mmol in a 24-hour period you achieve that goal today. Your primary care provider, Dr. Noriega, is retiring. You have asked that I contact Dr. Hugo about transferring over to his care. You are also worried about the delay in referral for your arm tumor. Your first appointment is not until January. Plan of Treatment: Please see Dr. Noriega in the next 1 to 2 weeks. I have already put in a request to Dr. Hugo to look at your chart and see if it is possible for you to transfer to his care as soon as possible. I have also called [facility] to discuss the treatment of bone tumors. I had wanted to do a biopsy of your tumor in the hospital. But the orthopedic surgeon there said that that may actually spread your cancer. When they do the biopsy they need to do it under a Specific procedure. As such they as we do not do a biopsy and refer you to [facility] so that you to be seen a soon as possible. [facility] orthopedic surgeon specimen accessioner says that they now have your name and number and their paient office will be calling you. I have also asked Dr. Hugo and the office to make that referral as well. You stated that you could get transportation to [facility]. I have not change your medication list. Except for adding salt tablet a day. Please drink at least a liter of water a day and take 1 salt tablet a day. Care Goals: You have told me that you are a DO NOT RESUSCITATE. And you have shared your DURABLE POWER OF PEGGER DOBBY LOOMS and POLST form with us. Those have been copied and scanned into the electronic medical record for you here. You have also shared with us that you have a long-term care insurance plan. You will be hiring private duty caregivers to take care of you at home. Assessment: She is deaf but has hearing aids. She is alert and oriented to person, place, time and situation Additional Instructions or Follow Up instructions: You have a mild compression fracture at T12, this is probably going to hurt for a while but is of probably not much medical significance. 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 Tylenol per package instructions for pain. No Smoking: If you smoke, Please STOP! Call for help. Follow-up with: Michelle Noriega MD [Primary Care Provider] -
--- NOTE | 2023-11-27 07:49 | DISCHARGE SUMMARY ---
<Kristin Tsang - Last Filed: 11/27/23 19:04> Discharge Summary Admit Date: 11/24/23 Discharge Date: 11/28/23 Discharging Provider: Kristin Tsang Md Primary Care Provider: Michelle Noriega MD/Vince Hugo MD Code Status: Do Not Attempt Resuscitation Condition at Discharge: Stable Discharge Disposition: 03 [facility] DC/Xfer - HPI History of Present Illness: 88 yo with a PMH of anemia and was admitted for barrientos 09/2015 after a hemoglobin was found to 6.3 and she was transfused. She was seen by Surgery (Hai) and an EGD and colonoscopy was performed. 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 The lower had a tortuous bowel, internal hemorrhoids but no diverticulosis. She also has a history of chronic hyponatremia. 134, 133. In December 2017 this was addressed with a chest x-ray and a 24- hour urine sodium excretion test. Her total volume was 1725. Urine sodium time was 32 mmol/L. Urine sodium over 24 hours was 55. Considered normal. She treated herself with Gatorade and eating salted almonds. She dropped to 128 in September 06, 2023. She did start complaining of fatigue and left shoulder pain in May 2019. It improved with physical therapy. She use to be a patient of Dr. Samm Caputo. From there she moved on to Dr. Hugo. She has not been seen in the clinic in a while and went to Dr. Michelle Noriega on October 24 to establish herself. Her main problem was that of increasing difficulty walking. She was just very stiff in the morning. She was getting more tired. Losing weight. started to feel like she was having dyspnea on exertion. On her new patient exam, she was diagnosed as anemia of chronic disease, fatigue. Weight loss. Radiology was ordered to workup the weight loss and abdomen pelvis CT was done for weight loss November 08. Coarse calcification within the adrenal glands indicating prior hemorrhage or infection. A left hip arthroplasty in the pelvis but no large mass or disease. There is nothing to explain the patient's abnormal weight loss with the abd CT. However, the Chest CT had a heterogeneous thyroid with likely underlying thyroiditis. Left axillary adenopathy was present. The lungs were clear of pneumonia but she had solid pulmonary nodules that were about 3 mm in the right lower lobe, and no bronchiectasis. She had a new destructive bony mass of the left humeral head associated with left soft tissue component measuring 5.2 x 2.6 cm. It was felt that the axillary adenopathy was associated with this mass. Her blood pressure history was addressed. Medications were renewed and the patient was sent for routine annual labs. She was reseen November 09. Complaining of left shoulder pain and, on that exam, she was diagnosed as having a mass of the left shoulder joint. referral was made to orthopedics for biopsy of this lesion. Today she was bending over to get something out of the refrigerator. When she stood up she lost her balance fell backwards and hit the back of her head. No loss of consciousness. Since then the back of her head hurt. She was evaluated by the ER where her initial vital signs showed a temperature of 37. Heart rate 96. Blood pressure 154/74. Respirations 18. 100% on room air. Radiology studies included a cervical spine CT, thoracic spine CT, lumbar spine CT, and a chest CT. She has a T12 minor compression fracture. Her lab work shows mild anemia and normal INR. Her CMP was notable for a hyponatremia that is worse than her usual hyponatremia. She is now 123 and this merits admission for tr eatment. She does not have nausea, altered mental status, history of seizures. Discussed the case with the ER provider. I agree with his assessment. I do think she merits admission for hyponatremia. - Past Medical History Cardiovascular: reports: Hypertension Respiratory: reports: Asthma ( Since childhood. On chronic laba and Lisa. FVC 2.05, FEV 1.7, ratio 83%) Neuro: reports: None Endocrine/Autoimmune: reports: HyPOthyroidism GI: reports: GERD (with esophagitis hx), Hemorrhoids, Other (iron deficiency anemia) MEDICAL ASSISTANT OB GYN: reports: Other (pelvic floor prolapse, atrophic vaginitis) : reports: Incontinence, Chronic bladder infection ( With a pessary in place for years. Underwent [place] colpocleisis 2018.), Nocturia HEENT: reports: Chronic vision loss (legally blind), Chronic hearing loss Psych: reports: None Musculoskeletal: reports: Osteoarthritis, Osteopenia, Other (trochanteric bursisit R hip 10/29/23 w injection) Derm: reports: Psoriasis (scalp), Other (Moh's L forehead 06/2022) MRSA Hx?: No Other Past Medical History: Thrombocytosis and leukocytosis - Past Surgical History Ortho: reports: Hip replacement (L hip fx repair 2007) /MEDICAL ASSISTANT OB GYN: reports: Other ([place] colpoclesis and cystoscopy w b/l uretral cath 01/2019) HEENT: reports: Cataracts, Tonsil/Adenoidectomy - HOSPITAL COURSE Hospital Course: The patient was being evaluated by your primary care provider for weight loss and fatigue. Her first visit was October 24. A CAT scan was done of chest, abdomen and pelvis. They found a tumor in her left arm. She also had a long history of hyponatremia but it has been stable for many years. Not severe. She presented to the emergency room with a fall. She had been in front of the refrigerator and was pulling something out when she stood up, lost balance, and fell back and hit her head. We found her to have worsening sodium level. For the last few years she had been living at approximately at 131-134. In the Emergency room she was 123. We placed her in the hospital and started gently hydrating her with NS. Goal was to not correct faster than 6 to 8 mmol in 24 hours. She has achieved the goal today. Now stable to go home. Her primary care provider, Dr. Noriega, is retiring. She has asked that I contact Dr. Hugo about transferring over to his care. Is also worried that the first visit for her bone tremor is not until January. I have also called [facility] to discuss the treatment of bone tumors. I had wanted to do a biopsy of the tumor while she was in the hospital. However, the orthopedic surgeon felt that I should wait on that. There is a theory that I could seed the tumor beyond the encapsulated area that it is in. They asked me to refer the patient to [facility]. They have taken her name and number and will probably be calling her as well. But I have sent a message to her primary care provider office to send a referral to [facility]. And to see if she could transfer her care to Dr. Westbrook when Dr. Noriega retires. The patient says that she can get transportation to [facility]. I have not changed her medication list other than to add a salt tablet a day. I am also asking her to drink a liter of water a day. 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 She is 5 feet 2 inches tall, weighs 51 kg. Temperature is 37.1. Heart rate 89. Blood pressure 146/78. Respirations 18. 96% on room air. Alert and oriented to person, place, time and situation. Denies severe pain in her left shoulder at rest. It only hurts when she tries to move it. CT scan here does show nodules in her lungs that are nonspecific. Lungs are clear to auscultation and percussion. Regular rate and rhythm with a systolic ejection murmur. The abdomen is soft, nontender with normal bowel sounds. Extremities do not have edema. She has mild generalized weakness and needs a standby assist her to get out of bed to go to the bathroom. She is insistent that she will go home safely. Her sister is flying in today from [place]. And one of her neighbors, who is a caregiver, will be coming by as well. Her formal plan is to set up daytime caregivers. As she is increased to help she will set up nighttime caregivers as well. She has a long-term care insurance policy that she will use. She also shared her POLST and DURABLE POWER OF DELIVERY REPRESENTATIVE forms with us. Her DURABLE POWER OF DELIVERY REPRESENTATIVE is her sister Amalia. And she is a DO NOT RESUSCITATE. Greater than 30 minutes was spent coordinating discharge This document was made in part using voice recognition software. While efforts are made to proofread this document, sound alike and grammatical errors may occur. - ALLERGIES Allergies/Adverse Reactions: Allergies Allergy/AdvReac Type Severity Reaction Status Date / Time No Known Drug Allergies Allergy Verified 11/24/23 14:49 - MEDICATIONS Home Medications: Ambulatory Orders Medication Instructions Recorded Confirmed Ascorbic Acid [Vitamin C] 1,000 mg PO DAILY 07/22/16 11/24/23 Cholecalciferol (Vitamin D3) 5,000 units PO DAILY 07/22/16 11/24/23 [Vitamin D3] Ipratropium [place] 2 spray AYESHA BID 07/22/16 11/24/23 Losartan [Cozaar] 100 mg PO DAILY 07/22/16 11/24/23 Olopatadine HCl [Pataday] 1 drops EACHEYE BID 07/22/16 11/24/23 Omeprazole 20 mg PO DAILY 07/22/16 11/24/23 Calcium Carbonate [Tums (Calcium 2 tab PO DAILY 01/24/19 11/24/23 Carbonate 500mg)] Acetaminophen [Tylenol] 2 tab PO QID 11/24/23 11/24/23 Choline Bitartrate [Choline Sr] 1 tab PO DAILY 11/24/23 11/24/23 Ciclesonide [Alvesco] 1 puffs INH BID 11/24/23 11/24/23 Ferrous Sulfate [Feosol] 1 tab PO DAILY 11/24/23 11/24/23 Levothyroxine [Synthroid] 0.5 - 1 tab PO DAILY 11/24/23 11/24/23 Loratadine [Claritin] 1 tab PO DAILY 11/24/23 11/24/23 Triamcinolone 0.5% Cream [Kenalog 1 applic TOP QID PRN 11/24/23 11/24/23 0.5% Cream] Sodium Chloride [Salt Tab] 1 gm PO DAILY #30 tab 11/27/23 Sodium Chloride [Salt Tab] 2 gm PO BID 14 Days #56 tab 11/30/23 cefuroxime axetiL [Ceftin] 250 mg PO BID 5 Days #10 tab 11/30/23 - LABS Result Diagrams: 11/27/23 05:07 11/27/23 05:07 <Marck Baltazar - Last Filed: 11/30/23 10:51> Discharge Summary Discharge Date: 11/30/23 Discharging Provider: Marck Baltazar MD Discharge Facility Name: [facility] - DIAGNOSES Admission Diagnoses: Hyponatremia Discharge Diagnoses with Status of Each Condition: 1. Hyponatremia - improved 2. T12 Compression Fractures - stable 3. Fall at Home 4. Cancer of Left Humerus - stable - HOSPITAL COURSE Hospital Course: In addition to the above documentation is that her sodium chloride tablets were increased to 2 gm BID dosing and that a urinalysis was checked, which showed findings consistent with a UTI. Her urine culture was pending at the time of discharge, though she was relatively asymptomatic. She was given a prescription for Ceftin 250 mg BID for 5 days. Also of note, she appealed her earlier discharge as she and her sister felt di scharging home with caregivers was no longer a safe option. Her appeal was denied and she did not meet ongoing PT/OT needs for SNF level of care. Family opted to go to [facility] and pay [id number] for SNF level of care until she could be transitioned possibly to Assisted Living Facility. - LABS Result Diagrams: 11/30/23 05:10 11/30/23 05:10
[2023-11-27] MEDS ORDERED: polyethylene glycoL 3350 17 GM PACKET PO SCH (09:00)
[2023-11-27] MEDS: oxyCODONE 5 MG TABLET PO PRN (16:09)
--- NOTE | 2023-11-27 18:06 | PROVIDER PROGRESS NOTE ---
Progress Note November 27, 2023 6 PM I had discharged the patient this morning. She was very adamant that she wanted to go home with caregivers. She did not want to consider assisted living facility or chcf temporarily. At the time of discharge her sister and a friend of the family informed the patient that they have canceled her caregivers. And they are insisting that she moved to an assisted living facility. As such the patient is appealing her discharge with the idea that she will go to an Assisted living facility once the family has identified 1. case management has worked closely with the family. They have called the appeals division for Medicare since they cannot seem to get through. They have also carefully explained how each of this process will work itself out. If the patient stay here is denied, she really does need to go to the assisted living facility if the family insist so. Or she can go home with the caregivers that she hired. Exam is temperature 37, heart rate 92, blood pressure 156/87, respirations 20. 98% on room air. Very frail elderly female who is 5 feet 2 inches tall, 51 kg Lungs are clear A regular rate and rhythm with systolic ejection murmur Abdomen is soft and nontender with normal bowel sounds Extremities have no edema Neurologically she is deaf, wears hearing aids, also wears glasses. She is alert and oriented to person, place, time and situation. She has worked with physical therapy and was able to walk 200 feet with a walker. She needs standby assist with getting up off the toilet. No tremulousness or gait ataxia. Assessment/Plan - Problem List (1) Hyponatremia Impression: She has had chronic hyponatremia for years. But this is the lowest her sodium has been. In looking at the CT of the abdomen and pelvis from November 08, she does have adrenal glands that are appear to be atrophic or scarred. Possibility of adrenal insufficiency that is a longstanding duration is going through my mind. She does not have congestive heart failure, she does not have alcoholic liver disease, she does not drink water excessively. send cortisol level is 10 this morning. Send no evidence of insufficiency of that level of cortisol. I have been giving her 0.9 normal saline. her sodium had gone from 123-130 the day after admission. So today I expected her to go up even further and discharge her 8/4. However her sodium dropped to 126 8/4. I noticed that urine output was very poor since midnight last night. The patient says that she has been urinating nonstop. In less than 7 hours she is urinated close to 1200 cc. She is not on a diuretic. Cortisol level was also normal so I do not think this is adrenal insufficiency. Sodium was 130 again today. She is walking 200 feet with a walker. Eating 50 to 100% of her food. Plan: Discharge plan and discharge summary prepared. Discharge order written. However nursing let me know this afternoon the family is appealing discharge. We will follow recommendations from Medicare once they are available. In the meantime she will be on oral medications. IV fluids been discontinued. (2) Cancer of left humerus Conclusion/Plan: She is scheduled for orthopedic evaluation in January. Radiology is not present on the weekends. I Did discuss possible bone biopsy with my orthopedic colleagues 11/24. However they feel that my approach would probably not be in the patient's interest. They worry about "seeding" the tumor if I do a biopsy with what I have here on hand. That would be a Jamshidi needle. Was able to speak to orthopedics on-call at on November 25. They are recommending referral to [facility]. They do not recommend that I biopsy. As such I sent a note in the [place] health chart for this patient that she would like to get an opinion from [facility]. I have also sent a note that she would like to switch to Dr. Westbrook since her primary care provider is retiring. Responded today by acknowledging my note. And they will be making the referrals promptly. (3) T12 compression fracture Conclusion/Plan: Amazingly, she may be uncomfortable but she is not in terrible pain. At this time pain management will be Tylenol, very low-dose opioids as needed. No physical therapy since the patient is walking 200 feet. she is already on calcium and vitamin D in the outpatient setting. I ordered one dose of reclast 5 mg IVP on 11/25/23. Qualifiers: Encounter type: initial encounter Qualified Code(s): S22.080A - Wedge compression fracture of T11-T12 vertebra, initial encounter for closed fracture (4) Fall at home Conclusion/Plan: simple mechanical fall. No reports of syncope in her description. And trying to plan for the future, I sat down and had an advance care planning conversation with this yomaira woman. She has many things already organized. Please see advance care planning conversation under separate Dictation. Her best friend who lives in [place] was with her yesterday. We all discussed the fact that this lady is weak. Will need caregiving. She was not happy about 24/7 caregiving. She demonstrated that she still able to be independent somewhat. She got up with her walker and is only a standby assist. She does plan on hiring a caregiver for during the day but feels safe to stay at home at night. Qualifiers: Encounter type: initial encounter Qualified Code(s): W19.XXXA - Unspecified fall, initial encounter; Y92.009 - Unspecified place in unspecified non- institutional (private) residence as the place of occurrence of the external cause
[2023-11-28] MEDS: ACETAMINOPHEN 500 MG TABLET PO SCH (01:06)
[2023-11-28 06:09] LABS: BASOPHILS # (AUTO) 0.1 10^3/uL (0.0-0.1); BASOPHILS % (AUTO) 0.5 %; EOSINOPHILS # (AUTO) 0.2 10^3/uL (0.0-0.7); EOSINOPHILS % (AUTO) 1.8 %; HCT - HEMATOCRIT 29.1 % (37.0-47.0); HGB - HEMOGLOBIN 9.5 g/dL (12.0-16.0); LYMPHOCYTES # (AUTO) 1.1 10^3/uL (1.5-3.5); LYMPHOCYTES % (AUTO) 8.3 %; MEAN CORPUSCULAR HEMOGLOBIN 30.2 pg (27.0-31.0); MEAN CORPUSCULAR HGB CONC 32.6 g/dL (32.0-36.0); MEAN CORPUSCULAR VOLUME 92.4 fL (81.0-99.0); MEAN PLATELET VOLUME 7.7 fL (7.9-10.8); MONOCYTES # (AUTO) 1.5 10^3/uL (0.0-1.0); MONOCYTES % (AUTO) 11.8 %; NEUTROPHILS # (AUTO) 9.8 10^3/uL (1.5-6.6); NEUTROPHILS % (AUTO) 77.1 %; PLT - PLATELET COUNT 404 10^3/uL (130-450); RED BLOOD COUNT 3.15 10^6/uL (4.20-5.40); RED CELL DISTRIBUTION WIDTH 13.5 % (12.0-15.0); WHITE BLOOD COUNT 12.7 x10^3/uL (4.8-10.8)
[2023-11-28 06:25] LABS: CALCIUM 8.1 mg/dL (8.5-10.3); CREATININE 0.4 mg/dL (0.6-1.3); POTASSIUM 4.2 mmol/L (3.5-4.5)
--- NOTE | 2023-11-28 14:28 | PROVIDER PROGRESS NOTE ---
Subjective - Prog Note Date Prog Note Date: 11/28/23 Prog Note Time: 14:24 - Subjective Pt reports feeling: No change Subjective: Yesterday the plan was for her to be discharged home with caregivers however as documented in notes yesterday afternoon, this fell through due to family getting rid of caregivers. Family then appealed discharge feeling that it was not safe for her to be going home. This morning the patient has no complaints and reports that she feels well. She denies having any chest pain, cough, fevers, chills, vomiting. Objective - Vital Signs/Intake & Output Vital Signs: Vital Signs x48h Temp Pulse Pulse Resp BP Pulse Ox 11/28/23 07:54 37.2 C 88 18 152/81 H 97 11/28/23 07:28 85 16 Intake & Output: Intake & Output 11/25/23 11/26/23 11/27/23 11/28/23 23:59 23:59 23:59 23:59 Intake Total 3823.334 3254.166 3263.750 840 Output Total 1100 1600 4450 500 Balance 2723.334 1654.166 -1186.250 340 - Objective General Appearance: positive: No acute distress, Alert Eyes Bilateral: positive: Normal inspection, PERRL, EOMI ENT: positive: ENT inspection nml, Pharynx nml Neck: positive: Nml inspection, Thyroid nml, No JVD Respiratory: positive: Chest non-tender, No respiratory distress, Breath sounds nml. negative: Wheezes, Rales, Rhonchi Cardiovascular: positive: Regular rate & rhythm, No murmur, No gallop Abdomen: positive: Non-tender, No organomegaly, Nml bowel sounds, No distention Skin: positive: Color nml, No rash Extremities: positive: Non-tender Neurologic/Psychiatric: positive: Oriented x3, CN's nml (2-12) - Lab Results Fish Bones: 11/28/23 05:45 11/28/23 05:45 Other Labs: Lab Results x24hrs 11/28/23 11/28/23 Range/Units 05:45 05:45 WBC 12.7 H (4.8-10.8) x10^3/uL RBC 3.15 L (4.20-5.40) 10^6/uL Hgb 9.5 L (12.0-16.0) g/dL Hct 29.1 L (37.0-47.0) % MCV 92.4 (81.0-99.0) fL MCH 30.2 (27.0-31.0) pg MCHC 32.6 (32.0-36.0) g/dL RDW 13.5 (12.0-15.0) % Plt Count 404 (130-450) 10^3/uL MPV 7.7 L (7.9-10.8) fL Neut # (Auto) 9.8 H (1.5-6.6) 10^3/uL Lymph # (Auto) 1.1 L (1.5-3.5) 10^3/uL [place] # (Auto) 1.5 H (0.0-1.0) 10^3/uL Eos # (Auto) 0.2 (0.0-0.7) 10^3/uL Baso # (Auto) 0.1 (0.0-0.1) 10^3/uL Absolute Nucleated RBC 0.00 x10^3/uL Nucleated RBC % 0.0 /100WBC Sodium 126 L (135-145) mmol/L Potassium 4.2 (3.5-4.5) mmol/L Chloride 98 L (101-111) mmol/L Carbon Dioxide 22 (21-32) mmol/L Anion Gap 6.0 (6-13) BUN 10 (6-20) mg/dL Creatinine 0.4 L (0.6-1.3) mg/dL Estimated GFR (MDRD) 150 (>89) Glucose 95 (74-104) mg/dL Calcium 8.1 L (8.5-10.3) mg/dL Sepsis Event Note (H) - Evaluation Current Stage of Sepsis: Ruled out Assessment/Plan - Problem List (1) Hyponatremia Impression: She has had chronic hyponatremia for years. But this is the lowest her sodium has been. In looking at the CT of the abdomen and pelvis from November 08, she does have adrenal glands that are appear to be atrophic or scarred. Possibility of adrenal insufficiency that is a longstanding duration is going through my mind. She does not have congestive heart failure, she does not have alcoholic liver disease, she does not drink water excessively. Her cortisol level was 10, thus no evidence of insufficiency of that level of cortisol. -Received IV fluids with normal saline, which improved her sodium from 123-130. -Placed on 1 g salt tablets daily when her sodium dropped again. She initially improved however is hyponatremic again to 126 today. -Will increase 1 g salt tablets from daily to twice daily dosing today. (2) Cancer of left humerus Impression: She is scheduled for orthopedic evaluation in January. Discussed possible bone biopsy with my orthopedic colleagues 11/24. However they feel that this approach would probably not be in the patient's interest. They worry about "se eding" the tumor if I do a biopsy with what I have here on hand. That would be a Jamshidi needle. Was able to speak to orthopedics on-call at on November 25. They are recommending referral to [facility]. They do not recommend that I biopsy. As such I sent a note in the [email or web address] health chart for this patient that she would like to get an opinion from [facility]. I have also sent a note that she would like to switch to Dr. Westbrook since her primary care provider is retiring. -Responded today by acknowledging my colleagues note in [place]. They will be making the referrals promptly. (3) T12 compression fracture Impression: Amazingly, she may be uncomfortable but she is not in terrible pain. At this time pain management will be Tylenol, very low-dose opioids as needed. No physical therapy since the patient is walking 200 feet, does not require extra- assistance. -She is already on calcium and vitamin D in the outpatient setting. Received one dose of reclast 5 mg IVP on 11/25/23. (4) Fall at home Impression: Simple mechanical fall. No reports of syncope in her description. And trying to plan for the future, I sat down and had an advance care planning conversation with this yomaira woman. She has many things already organized. Please see advance care planning conversation under separate Dictation. Her best friend who lives in [place] was with her yesterday. We all discussed the fact that this lady is weak. Will need caregiving. She was not happy about 14/11 caregiving. She demonstrated that she still able to be independent somewhat. She got up with her walker and is only a standby assist. She does plan on hiring a caregiver for during the day but feels safe to stay at home at night. -Initial plan was to discharge home with caregivers as she does not require extra assistance per physical therapy and staff. Family fired caregivers and are now appealing the discharge thinking that she requires assisted living. While assisted living may ultimately be in her best interest, this cannot be a transition from hospitalization straight to assisted living. She also does not meet criteria for SNF placement thus if family wanted SNF they would have to pay [id number]. -While her discharge is being appealed, we will continue current management.
[2023-11-28] MEDS: SODIUM CHLORIDE 1 GM TABLET PO SCH (20:07)
[2023-11-29 05:48] LABS: BASOPHILS # (AUTO) 0.1 10^3/uL (0.0-0.1); BASOPHILS % (AUTO) 0.6 %; EOSINOPHILS # (AUTO) 0.4 10^3/uL (0.0-0.7); EOSINOPHILS % (AUTO) 3.5 %; HCT - HEMATOCRIT 30.2 % (37.0-47.0); HGB - HEMOGLOBIN 9.6 g/dL (12.0-16.0); LYMPHOCYTES # (AUTO) 1.1 10^3/uL (1.5-3.5); LYMPHOCYTES % (AUTO) 10.6 %; MEAN CORPUSCULAR HEMOGLOBIN 29.4 pg (27.0-31.0); MEAN CORPUSCULAR HGB CONC 31.8 g/dL (32.0-36.0); MEAN CORPUSCULAR VOLUME 92.6 fL (81.0-99.0); MEAN PLATELET VOLUME 7.6 fL (7.9-10.8); MONOCYTES # (AUTO) 1.1 10^3/uL (0.0-1.0); MONOCYTES % (AUTO) 10.3 %; NEUTROPHILS # (AUTO) 7.7 10^3/uL (1.5-6.6); NEUTROPHILS % (AUTO) 74.6 %; PLT - PLATELET COUNT 411 10^3/uL (130-450); RED BLOOD COUNT 3.26 10^6/uL (4.20-5.40); RED CELL DISTRIBUTION WIDTH 13.3 % (12.0-15.0); WHITE BLOOD COUNT 10.3 x10^3/uL (4.8-10.8)
[2023-11-29 06:01] LABS: CALCIUM 8.4 mg/dL (8.5-10.3); CREATININE 0.4 mg/dL (0.6-1.3); POTASSIUM 4.1 mmol/L (3.5-4.5)
[2023-11-29 08:02] LABS: THYROID STIMULATING HORMONE 3.09 uIU/mL (0.34-5.60)
--- NOTE | 2023-11-29 10:52 | PROVIDER PROGRESS NOTE ---
Subjective - Prog Note Date Prog Note Date: 11/29/23 Prog Note Time: 10:42 - Subjective Pt reports feeling: No change Subjective: No acute events overnight. Patient reports that she feels overall well and indicates that she has minimal pain even with ambulating with her walker. Denies any nausea, vomiting or diarrhea and indicates she has been eating and drinking okay. Denies any headache, confusion, blurry vision or paresthesias. Her sodium level today has decreased down to 125. Objective - Vital Signs/Intake & Output Reviewed Vital Signs: Yes Vital Signs: Vital Signs x48h Temp Pulse Resp BP Pulse Ox 11/29/23 08:26 37.2 C 80 18 154/70 H 95 Intake & Output: Intake & Output 11/26/23 11/27/23 11/28/23 11/29/23 23:59 23:59 23:59 23:59 Intake Total 3254.166 3263.750 1140 940 Output Total 1600 4450 500 Balance 1654.166 -1186.250 640 940 - Objective General Appearance: positive: No acute distress, Alert, Mild distress Eyes Bilateral: positive: Normal inspection, PERRL, EOMI ENT: positive: ENT inspection nml, Pharynx nml, No signs of dehydration Neck: positive: Nml inspection, Thyroid nml, No JVD, Trachea midline Respiratory: positive: Chest non-tender, No respiratory distress, Breath sounds nml. negative: Wheezes, Rales, Rhonchi Cardiovascular: positive: Regular rate & rhythm, No murmur, No gallop Peripheral Pulses: 2+ Dorsalis pedis (R), 2+ Dorsalis pedis (L) Abdomen: positive: Non-tender, No organomegaly, Nml bowel sounds, No distention Back: positive: Nml inspection Skin: positive: Color nml, No rash, Warm, Dry Extremities: positive: Nml appearance, No pedal edema Neurologic/Psychiatric: positive: Oriented x3, CN's nml (2-12), Motor nml, Sensation nml - Lab Results Fish Bones: 11/29/23 05:36 11/29/23 05:36 Other Labs: Lab Results x24hrs 11/29/23 11/29/23 11/29/23 Range/Units 07:22 05:36 05:36 WBC 10.3 (4.8-10.8) x10^3/uL RBC 3.26 L (4.20-5.40) 10^6/uL Hgb 9.6 L (12.0-16.0) g/dL Hct 30.2 L (37.0-47.0) % MCV 92.6 (81.0-99.0) fL MCH 29.4 (27.0-31.0) pg MCHC 31.8 L (32.0-36.0) g/dL RDW 13.3 (12.0-15.0) % Plt Count 411 (130-450) 10^3/uL MPV 7.6 L (7.9-10.8) fL Neut # (Auto) 7.7 H (1.5-6.6) 10^3/uL Lymph # (Auto) 1.1 L (1.5-3.5) 10^3/uL [place] # (Auto) 1.1 H (0.0-1.0) 10^3/uL Eos # (Auto) 0.4 (0.0-0.7) 10^3/uL Baso # (Auto) 0.1 (0.0-0.1) 10^3/uL Absolute Nucleated RBC 0.00 x10^3/uL Nucleated RBC % 0.0 /100WBC Sodium 125 L (135-145) mmol/L Potassium 4.1 (3.5-4.5) mmol/L Chloride 98 L (101-111) mmol/L Carbon Dioxide 22 (21-32) mmol/L Anion Gap 5.0 L (6-13) BUN 9 (6-20) mg/dL Creatinine 0.4 L (0.6-1.3) mg/dL Estimated GFR (MDRD) 150 (>89) Glucose 95 (74-104) mg/dL Calcium 8.4 L (8.5-10.3) mg/dL Triglycerides 90 mg/dL TSH 3.09 (0.34-5.60) uIU/mL Sepsis Event Note (H) - Evaluation Current Stage of Sepsis: Ruled out Assessment/Plan - Problem List (1) Hyponatremia Impression: She has had chronic hyponatremia for years. But this is the lowest her sodium has been. In looking at the CT of the abdomen and pelvis from [place] 18, she does have adrenal glands that are appear to be atrophic or scarred. Possibility of adrenal insufficiency that is a longstanding duration is going through my mind. She does not have congestive heart failure, she does not have alcoholic liver disease, she does not drink water excessively. Her cortisol level was 10, thus no evidence of insufficiency of that level of cortisol. -Received IV fluids with normal saline, which improved her sodium from 123 --> 130. -Placed on 1 g salt tablets daily when her sodium dropped again. She initially improved however has been decreasing again. -Salt tabs increased to 1 g BID dosing yesterday, but serum sodium dropped to 125 today. -Checking urinalysis, TSH, Triglyceride level. Place on 1.5 liter Fluid Restriction. -If urinalysis is concentrated, can trial giving a dose of lasix to promote free water excretion. (2) Cancer of left humerus Impression: She is scheduled for orthopedic evaluation in January. Discussed possible bone biopsy with my orthopedic colleagues 11/24. However they feel that this approach would probably not be in the patient's interest. They worry about "seeding" the tumor if I do a biopsy with what I have here on hand. That would be a Jamshidi needle. Was able to speak to orthopedics on-call at on November 25. They are recommending referral to [facility]. They do not recommend that I biopsy. As such I sent a note in the [facility] health chart for this patient that she would like to get an opinion from [facility]. I have also sent a note that she would like to switch to Dr. Westbrook since her primary care provider is retiring. -Responded today by acknowledging my colleagues note in [facility]. She will need outpatient referrals by her PCP, but they will follow up with the patient after discharge. (3) T12 compression fracture Impression: Amazingly, she may be slightly uncomfortable but she is not in terrible pain and is ambulatory without much difficulty. At this time pain management will be Tylenol, very low-dose opioids as needed. No inpatient physical therapy since the patient is walking 200 feet, does not require extra-assistance. -She is already on calcium and vitamin D in the outpatient setting. Received one dose of reclast 5 mg IVP on 11/25/23. (4) Fall at home Impression: Simple mechanical fall. No reports of syncope in her description. And trying to plan for the future, I sat down and had an advance care planning conversation with this yomaira woman. She has many things already organized. Please see advance care planning conversation under separate Dictation. Her best friend who lives in [place] was with her yesterday. We all discussed the fact that this lady is weak. Will need caregiving. She was not happy about 14/11 caregiving. She demonstrated that she still able to be independent somewhat. She got up with her walker and is only a standby assist. She does plan on hiring a caregiver for during the day but feels safe to stay at home at night. -Initial plan was to discharge home with caregivers on 11/27/23 as she does not require extra assistance per physical therapy and staff. Family fired caregivers and are then appealed the discharge thinking that she requires assisted living or higher level of care. While assisted living may ultimately be in her best interest, this cannot be a transition from hospitalization straight to assisted living as they need to evaluate the patient at her home (not in the hospital). She also does not meet criteria for SNF placement thus if family wanted SNF they would have to pay [id number], which they apparently are looking into [facility] for placement at their own expense. -Her appeal was denied and initial plan was for discharge today. -Given her worsening hyponatremia though, she is now not medically stable for discharge. Will treat sodium as noted above and keep her in the hospital for now.
[2023-11-29] MEDS: FUROSEMIDE 20 MG/2 ML VIAL IVP ONE (17:41)
[2023-11-29 19:12] LABS: BILIRUBIN,URINE NEGATIVE (NEGATIVE); GLUCOSE, URINE (UA) NEGATIVE (NEGATIVE); KETONES,URINE (UA) NEGATIVE (NEGATIVE); LEUKOCYTE ESTERASE, URINE LARGE (NEGATIVE); NITRITE,URINE NEGATIVE (NEGATIVE); OCCULT BLOOD,URINE TRACE-INTA (NEGATIVE); PH,URINE 6.5 PH (5.0-7.5); PROTEIN,URINE NEGATIVE (NEGATIVE); UROBILINOGEN,URINE 1 (NORMAL) E.U./dL (NORMAL)
[2023-11-29 19:21] LABS: CLARITY,URINE SL. CLOUDY (CLEAR); WBC,URINE >25 /HPF (0-5)
[2023-11-29 19:22] LABS: BACTERIA,URINE Few /HPF (None Seen); EPITHELIAL CELLS,UR FEW Renal Tubular /HPF (<= Few); SQUAMOUS EPITHELIAL CELL,UR FEW Squamous (<= Few); WBC CLUMPS,URINE PRESENT
[2023-11-30 06:08] LABS: BASOPHILS % (AUTO) 0.4 %; EOSINOPHILS # (AUTO) 0.4 10^3/uL (0.0-0.7); EOSINOPHILS % (AUTO) 4.3 %; HCT - HEMATOCRIT 29.4 % (37.0-47.0); HGB - HEMOGLOBIN 9.4 g/dL (12.0-16.0); LYMPHOCYTES # (AUTO) 1.1 10^3/uL (1.5-3.5); LYMPHOCYTES % (AUTO) 11.1 %; MEAN CORPUSCULAR HEMOGLOBIN 29.7 pg (27.0-31.0); MEAN CORPUSCULAR VOLUME 92.7 fL (81.0-99.0); MEAN PLATELET VOLUME 7.9 fL (7.9-10.8); MONOCYTES # (AUTO) 1.1 10^3/uL (0.0-1.0); MONOCYTES % (AUTO) 11.6 %; NEUTROPHILS # (AUTO) 7.1 10^3/uL (1.5-6.6); PLT - PLATELET COUNT 454 10^3/uL (130-450); RED BLOOD COUNT 3.17 10^6/uL (4.20-5.40); RED CELL DISTRIBUTION WIDTH 13.3 % (12.0-15.0); WHITE BLOOD COUNT 9.8 x10^3/uL (4.8-10.8)
[2023-11-30 06:25] LABS: CALCIUM 8.3 mg/dL (8.5-10.3); CREATININE 0.5 mg/dL (0.6-1.3); MAGNESIUM 1.7 mg/dL (1.7-2.3)
[2023-11-30] MEDS: cefuroxime axetiL 250 MG TABLET PO SCH (08:32)
[2023-11-30] MEDS: SODIUM CHLORIDE 1 GM TABLET PO SCH (08:32)
[2023-11-30 08:33] VITALS: BP 136/71; O2SAT 96
[2023-11-30] MEDS ORDERED: cefTRIAXone 1 GM in SODIUM CHLORIDE 0.9% MINIBAG 100 ML IV SCH (09:00)
--- NOTE | 2023-11-30 10:24 | Discharge Plan ---
Discharge Plan Problem Reviewed?: Yes Disposition: [facility] DC/Xfer Condition: Stable Prescriptions: cefuroxime axetiL [Ceftin] 250 mg PO BID 5 Days #10 tab Sodium Chloride [Salt Tab] 1 gm PO DAILY #30 tab Sodium Chloride [Salt Tab] 2 gm PO BID 14 Days #56 tab Diet: Regular Activity Restrictions: Activity as Tolerated Shower Restrictions: No Driving Restrictions: Yes (no driving) Health Concerns: You were being evaluated by your primary care provider for weight loss and fatigue. Your first visit was October 24. A CAT scan was done of chest, abdomen. 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 You also have a long history of low salt levels in your blood but it has been stable for many years. Not severe. You presented to the emergency room with a fall. You had been in front of the refrigerator and was pulling something out when you stood up, lost balance, and fell back and hit your head. We found to have a very low sodium level. Normal is 135. For the last few years you have been living at approximately at 131- 134. Emergency room you were 123. We placed you in the hospital and started gently hydrating you with salt water and putting that directly into your veins through an IV. We are giving you a prescription for salt tabs that you will take twice daily. You were also found to have a urinary tract infection (UTI) and were placed on an oral antibiotic called Ceftin. You can take this medication twice daily (once in the morning and the evening) for the next 5 days, starting this evening (11/30/23). You are being discharged for [facility]. During your hospitalization, you DID NOT meet Medicare criteria for prison care, thus by going to [facility], you will be paying for that stay out of your own money reserves, without support from insurance/Medicare. This duration of your stay at [facility] is dependent on what your preference is, in addition to discussion with staff at [facility]. You should look into Assisted Living Facilities to see if that would be a less expensive solution for your care going forward in the future. Your primary care provider, Dr. Noriega, is retiring. You have asked that I contact Dr. Hugo about transferring over to his care. You are also worried about the delay in referral for your arm tumor. Your first appointment is not until January. Plan of Treatment: Please see Dr. Noriega in the next 1 to 2 weeks. I have already put in a request to Dr. Hugo to look at your chart and see if it is possible for you to transfer to his care as soon as possible. I have also called [facility] to discuss the treatment of bone tumors. We discussed the possibility of performing a biopsy of your tumor in the hospital. But the orthopedic surgeon there said that that may actually spread your cancer. When they do the biopsy they need to do it under a specific procedure. As such we did not do a biopsy and have referred you to [facility] so that you to be seen a soon as possible. [facility] orthopedic surgeon mental retardation nurse says that they now have your name and number and their patient office will be calling you after discharge. I have also asked Dr. Hugo and the office to make that referral as well. You stated that you could get transportation to [facility]. I have not change your medication list except for adding salt tablet twice a day and adding a course of antibiotics for your UTI. Care Goals: You have told me that you are a DO NOT RESUSCITATE. And you have shared your DURABLE POWER OF TELESALES ADVISOR and POLST form with us. Those have been copied and scanned into the electronic medical record for you here. Assessment: She is hard of hearing but has hearing aids. She is alert and oriented to person, place, time and situation Additional Instructions or Follow Up instructions: You have a mild compression fracture at T12, this is probably going to hurt for a while but is of probably not much medical significance. As it is mild in nature, there are no specific procedures required or recommended for you to heal. We did give you a medication called Reclast while in the hospital, which helps with osteoporosis. 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 You should have a chemistry panel (blood work) obtained on Monday, December 04, 2023, in order to monitor your sodium levels. No Smoking: If you smoke, Please STOP! Call for help. Follow-up with: Michelle Noriega MD [Primary Care Provider] -
--- NOTE | 2023-11-30 11:02 | DISCHARGE SUMMARY ---
Discharge Summary Admit Date: 11/24/23 Discharge Date: 11/30/23 Discharging Provider: Marck Baltazar MD Primary Care Provider: Michelle Noriega MD / Vince Hugo MD Code Status: Do Not Attempt Resuscitation Condition at Discharge: Stable Discharge Disposition: 03 SNF DC/Xfer Discharge Facility Name: [facility] - DIAGNOSES Admission Diagnoses: Hyponatremia Discharge Diagnoses with Status of Each Condition: 1. Hyponatremia - improved 2. T12 Compression Fractures - stable 3. Fall at Home 4. Cancer of Left Humerus - stable - HPI History of Present Illness: 88 yo with a PMH of anemia and was admitted for barrientos 09/2015 after a hemoglobin was found to 6.3 and she was transfused. She was seen by Surgery (Hai) and an EGD and colonoscopy was performed. 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 The lower had a tortuous bowel, internal hemorrhoids but no diverticulosis. She also has a history of chronic hyponatremia. 13 4, 133. In December 2017 this was addressed with a chest x-ray and a 24-hour urine sodium excretion test. Her total volume was 1725. Urine sodium time was 32 mmol/L. Urine sodium over 24 hours was 55. Considered normal. She treated herself with Gatorade and eating salted almonds. She dropped to 128 in September 06, 2023. She did start complaining of fatigue and left shoulder pain in May 2019. It improved with physical therapy. She use to be a patient of Dr. Samm Caputo. From there she moved on to Dr. Hugo. She has not been seen in the clinic in a while and went to Dr. Michelle Noriega on October 24 to establish herself. Her main problem was that of increasing difficulty walking. She was just very stiff in the morning. She was getting more tired. Losing weight. started to feel like she was having dyspnea on exertion. On her new patient exam, she was diagnosed as anemia of chronic disease, fatigue. Weight loss. Radiology was ordered to workup the weight loss and abdomen pelvis CT was done for weight loss November 08. Coarse calcification within the adrenal glands indicating prior hemorrhage or infection. A left hip arthroplasty in the pelvis but no large mass or disease. There is nothing to explain the patient's abnormal weight loss with the abd CT. However, the Chest CT had a heterogeneous thyroid with likely underlying thyroiditis. Left axillary adenopathy was present. The lungs were clear of pneumonia but she had solid pulmonary nodules that were about 3 mm in the right lower lobe, and no bronchiectasis. She had a new destructive bony mass of the left humeral head associated with left soft tissue component measuring 5.2 x 2.6 cm. It was felt that the axillary adenopathy was associated with this mass. Her blood pressure history was addressed. Medications were renewed and the patient was sent for routine annual labs. She was reseen November 09. Complaining of left shoulder pain and, on that exam, she was diagnosed as having a mass of the left shoulder joint. referral was made to orthopedics for biopsy of this lesion. Today she was bending over to get something out of the refrigerator. When she stood up she lost her balance fell backwards and hit the back of her head. No loss of consciousness. Since then the back of her head hurt. She was evaluated by the ER where her initial vital signs showed a temperature of 37. Heart rate 96. Blood pressure 154/74. Respirations 18. 100% on room air. Radiology studies included a cervical spine CT, thoracic spine CT, lumbar spine CT, and a chest CT. She has a T12 minor compression fracture. Her lab work shows mild anemia and normal INR. Her CMP was notable for a hyponatremia that is worse than her usual hyponatremia. She is now 123 and this merits admission for treatment. She does not have nausea, altered mental status, history of seizures. Discussed the case with the ER provider. I agree with his assessment. I do think she merits admission for hyponatremia. - HOSPITAL COURSE Hospital Course: The patient was being evaluated by her primary care provider for weight loss and fatigue. Her first visit was October 24. A CAT scan was done of chest, abdomen and pelvis. They found a tumor in her left arm. She also had a long history of hyponatremia but it has been stable for many years. Not severe. She presented to the emergency room with a fall. She had been in front of the refrigerator and was pulling something out when she stood up, lost balance, and fell back and hit her head. We found her to have worsening sodium level. For the last few years she had been living at approximately at 131-134, but more recently around 128. In the Emergency room she was 123. We placed her in the hospital and started gently hydrating her with NS. Goal was to not correct faster than 6 to 8 mmol in 24 hours. She has achieved the goal today. Now stable to go home. Her primary care provider, Dr. Noriega, is retiring. She has asked that I contact Dr. Hugo about transferring over to his care. Is also worried that the first visit for her bone tremor is not until January. [facility] was contacted to discuss the treatment of bone tumors. We wanted to do a biopsy of the tumor while she was in the hospital. However, the orthopedic surgeon felt that we should wait on that. There is a theory that we could seed the tumor beyond the encapsulated area that it is in. They asked to refer the patient to [facility] to have this further evaluated as an outpatient. They have taken her name and number and will probably be calling her as well. But a message was sent to her primary care provider office to send a referral to [facility]. And to see if she could transfer her care to Dr. Westbrook when Dr. Noriega retires. The patient says that she can get transportation to [facility]. Her medication list was noted changed other than to add a salt tablet twice daily and Ceftin BID for 5 days to treat a UTI. Her urinalysis the day prior to discharged showed a UTI, though she was relatively asymptomatic. A urine culture was pending at the time of discharge. 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 She is 5 feet 2 inches tall, weighs 51 kg. Temperature is 37.1. Heart rate 89. Blood pressure 146/78. Respirations 18. 96% on room air. Alert and oriented to person, place, time and situation. Denies severe pain in her left shoulder at rest. It only hurts when she tries to move it. CT scan here does show nodules in her lungs that are nonspecific. Lungs are clear to auscultation and percussion. Regular rate and rhythm with a systolic ejection murmur. The abdomen is soft, nontender with normal bowel sounds. Extremities do not have edema. There was a plan to discharge home with increased caregivers to attend her needs, as she did not meet inpatient PT/OT criteria for SNF placement. This was arranged but the patient and her sister ultimately decided that this was not a safe discharge plan and appealed her discharge. She ultimately lost her appeal and plan was to discharge. The patient and her sister were able to secure an [id number] expense bed at [facility] for ongoing SNF level of care, though it was reiterated to them several times that she did not meet Medicare criteria for [facility] level of care thus she will remain as private pay at that facility for the duration of the time that she stays. She was ultimately n the hospital an extra day for medical reasons as her sodium decreased to 125. She was placed on fluid restriction and had her salt tabs increased to 2 g twice daily as well as given 1 dose of Lasix to promote free water excretion. Her serum sodium increased to 127 which is similar to the last sodium checked as an outpatient of 128 in August 2023. As she appears to be asymp tomatic at this time she was deemed safe for discharge to [facility]. She also shared her POLST and DURABLE POWER OF DISTRIBUTION ENGINEER forms with us. Her DURABLE POWER OF DISTRIBUTION ENGINEER is her sister Amalia. And she is a DO NOT RESUSCITATE. Greater than 30 minutes was spent coordinating discharge This document was made in part using voice recognition software. While efforts are made to proofread this document, sound alike and grammatical errors may occur. - ALLERGIES Allergies/Adverse Reactions: Allergies Allergy/AdvReac Type Severity Reaction Status Date / Time No Known Drug Allergies Allergy Verified 11/24/23 14:49 - MEDICATIONS Home Medications: Ambulatory Orders Medication Instructions Recorded Confirmed Ascorbic Acid [Vitamin C] 1,000 mg PO DAILY 07/22/16 11/24/23 Cholecalciferol (Vitamin D3) 5,000 units PO DAILY 07/22/16 11/24/23 [Vitamin D3] Ipratropium [place] 2 spray AYESHA BID 07/22/16 11/24/23 Losartan [Cozaar] 100 mg PO DAILY 07/22/16 11/24/23 Olopatadine HCl [Pataday] 1 drops EACHEYE BID 07/22/16 11/24/23 Omeprazole 20 mg PO DAILY 07/22/16 11/24/23 Calcium Carbonate [Tums (Calcium 2 tab PO DAILY 01/24/19 11/24/23 Carbonate 500mg)] Acetaminophen [Tylenol] 2 tab PO QID 11/24/23 11/24/23 Choline Bitartrate [Choline Sr] 1 tab PO DAILY 11/24/23 11/24/23 Ciclesonide [Alvesco] 1 puffs INH BID 11/24/23 11/24/23 Ferrous Sulfate [Feosol] 1 tab PO DAILY 11/24/23 11/24/23 Levothyroxine [Synthroid] 0.5 - 1 tab PO DAILY 11/24/23 11/24/23 Loratadine [Claritin] 1 tab PO DAILY 11/24/23 11/24/23 Triamcinolone 0.5% Cream [Kenalog 1 applic TOP QID PRN 11/24/23 11/24/23 0.5% Cream] Sodium Chloride [Salt Tab] 1 gm PO DAILY #30 tab 11/27/23 Sodium Chloride [Salt Tab] 2 gm PO BID 14 Days #56 tab 11/30/23 cefuroxime axetiL [Ceftin] 250 mg PO BID 5 Days #10 tab 11/30/23 - LABS Result Diagrams: 11/30/23 05:10 11/30/23 05:10 - SEPSIS Current Stage of Sepsis: Ruled out
[2023-12-02] MEDS ORDERED: LEVOTHYROXINE 25 MCG TABLET PO SCH (07:00)
== END 2023-11-30 14:00 | DRG 641 ==
LOC: ED 12:31 → UNDOADMIN 16:39 → MS2 16:39
PROVIDERS: ADMIT Specialist; ATTEND Hospitalist
DX: E87.1 Hypo-osmolality and hyponatremia (principal); S22.080A Wedge compression fracture of T11-T12 vertebra, initial encounter for closed fracture; C40.02 Malignant neoplasm of scapula and long bones of left upper limb; N39.0 Urinary tract infection, site not specified; H91.93 Unspecified hearing loss, bilateral; S09.90XA Unspecified injury of head, initial encounter; D64.9 Anemia, unspecified; R07.81 Pleurodynia; R59.0 Localized enlarged lymph nodes; R63.4 Abnormal weight loss; H91.90 Unspecified hearing loss, unspecified ear; G89.3 Neoplasm related pain (acute) (chronic); R91.8 Other nonspecific abnormal finding of lung field; R01.1 Cardiac murmur, unspecified; Z66 Do not resuscitate; W18.30XA Fall on same level, unspecified, initial encounter; E03.9 Hypothyroidism, unspecified; K21.9 Gastro-esophageal reflux disease without esophagitis; R32 Unspecified urinary incontinence; E87.6 Hypokalemia; Z68.20 Body mass index [BMI] 20.0-20.9, adult; Y92.000 Kitchen of unspecified non-institutional (private) residence as the place of occurrence of the external cause
CPT/HCPCS: 36415; 70450; 71250; 72125; 72128; 72131; 80048; 80053; 81001; 82533; 83735; 84295; 84443; 84478; 85025; 85610; 87086; 94640; 97116; 97161; 97165; 99285; A9270; J1650; J3489; J7626

== ENCOUNTER 2023-12-05 08:00 | Outpatient (CLI) | payer MEDICARE ==
[2023-12-05 16:18] LABS: CALCIUM 8.8 mg/dL (8.5-10.3); CREATININE 0.6 mg/dL (0.6-1.3); POTASSIUM 3.6 mmol/L (3.5-4.5)
== END 2023-12-05 23:59 | disposition home or self-care (01) ==
LOC: LAB.R 08:00
PROVIDERS: ATTEND Family Medicine
DX: I10 Essential (primary) hypertension (principal)
CPT/HCPCS: 80048

== ENCOUNTER 2023-12-24 08:00 | Outpatient (CLI) | payer MEDICARE ==
[2023-12-24 14:33] LABS: CALCIUM 9.1 mg/dL (8.5-10.3); CREATININE 0.6 mg/dL (0.6-1.3); POTASSIUM 4.8 mmol/L (3.5-4.5)
[2023-12-24 14:51] LABS: THYROID STIMULATING HORMONE 1.72 uIU/mL (0.34-5.60)
== END 2023-12-24 23:59 | disposition home or self-care (01) ==
LOC: LAB.R 08:00
PROVIDERS: ATTEND Family Medicine
DX: I10 Essential (primary) hypertension (principal); E03.8 Other specified hypothyroidism
CPT/HCPCS: 80048; 84439; 84443

== ENCOUNTER 2024-01-17 08:00 | Outpatient (CLI) | payer MEDICARE ==
[2024-01-17 18:31] LABS: POTASSIUM,URINE 42.5 mmol/L; SODIUM, URINE 68.2 mmol/L
[2024-01-17 18:33] LABS: BILIRUBIN,URINE NEGATIVE (NEGATIVE); GLUCOSE, URINE (UA) NEGATIVE (NEGATIVE); KETONES,URINE (UA) NEGATIVE (NEGATIVE); LEUKOCYTE ESTERASE, URINE NEGATIVE (NEGATIVE); NITRITE,URINE NEGATIVE (NEGATIVE); OCCULT BLOOD,URINE NEGATIVE (NEGATIVE); PROTEIN,URINE NEGATIVE (NEGATIVE); UROBILINOGEN,URINE 0.2 (NORMAL) E.U./dL (NORMAL)
[2024-01-17 18:35] LABS: CLARITY,URINE CLEAR (CLEAR)
[2024-01-17 18:44] LABS: RBC,URINE 0-5 /HPF (0-5); SQUAMOUS EPITHELIAL CELL,UR RARE Squamous (<= Few); WBC,URINE 0-3 /HPF (0-5)
[2024-01-17 18:45] LABS: BACTERIA,URINE None Seen /HPF (None Seen)
== END 2024-01-17 23:59 | disposition home or self-care (01) ==
LOC: LAB.WCP 08:00
DX: R30.0 Dysuria (principal); E87.1 Hypo-osmolality and hyponatremia
CPT/HCPCS: 81001; 83935; 84133; 84300; 87086